=== PATIENT | male | born 1970 | race African-American/Black ===

== ENCOUNTER 2023-07-30 14:45 | Inpatient (IN) ==
[2023-07-30] MEDS ORDERED: SODIUM CHLORIDE 0.9% 250 ML IV PRN ×2 (15:22→16:51)
--- NOTE | 2023-07-30 15:36 | Emergency Department Note ---
Impression & Plan Weakness, Anemia, Dizziness, Thrombocytopenia ED Provider Note NAME: HINA [id number] YONI AGE: 53 SEX: M : 1970 ARRIVES VIA: Walk-In INFORMANT: [Patient] ED PROVIDER(S): [Darren Loya MD] CHIEF COMPLAINT: Anemia HISTORY OF PRESENT ILLNESS: The patient is a 53-year-old male who states he has a past diagnosis of anemia. He states that he at one point had bone marrow tested and he was told that he just was not making enough red cells. He was told he did not have cancer. Patient is currently at the local state detention and his hemoglobin returned quite low with some recent testing at 6.1. He also had a low platelet count of 115. The patient complains of increasing fatigue and weakness. He feels as if he has no energy. He is lightheaded to stand. He was sent today for a packed red blood cell transfusion, the patient is in favor of being transfused. The patient denies any black stool, stool was brown. Occasionally, when he wipes, he notices blood. There has been no vomiting, no abdominal pain. No fever. Of note, the patient cannot recall ever receiving a blood transfusion PMHx/PSHx/Social Hx: See Below PHYSICAL EXAM: GENERAL: Patient is in no acute distress. HEENT: No acute trauma, normocephalic atraumatic, mucous membranes moist, no nasal congestion. NECK: No stridor, no adenopathy, no meningismus, trachea is midline. LUNGS: Clear to auscultation bilaterally, no wheeze, no rhonchi, breath sounds equal. HEART: Subtle systolic murmur, regular rate and rhythm. ABDOMEN: Soft, nontender, no peritonitis. EXTREMITIES: No cyanosis, full range of motion of all the joints without pain or difficulty. NEUROLOGIC: Oriented x 3, no acute motor or sensory deficits, no focal weakness. SKIN: No jaundice, no diaphoresis. DIFFERENTIAL DIAGNOSIS: Myelodysplastic syndrome, GI bleeding, electrolyte imbalance, malignancy, tickborne illness, among others. EMERGENCY DEPARTMENT PROCEDURES: MEDICAL DECISION MAKING: There is no leukocytosis. The patient is quite anemic with a hemoglobin of 6. Platelet count is low at 128. No renal failure or significant electrolyte abnormality. No concerning liver enzyme elevation. ECG shows a sinus bradycardia, no obvious acute ischemia. Cardiac enzyme testing x 1 is not consistent with acute cardiac injury. Patient appeared to be in a euthyroid state. Urinalysis does not show findings of infection. No hematuria. Anaplasmosis and Babesia smears were negative. Send out testing for anaplasmosis and Babesia is pending. Lyme disease testing was negative. COVID test was negative. Chest x-ray did not show pneumonia or CHF. On exam, the patient was not toxic, he was not hypotensive. The patient appears to be having issues with anemia. This has been an ongoing problem for him but today's hemoglobin was quite a bit lower than his baseline. He has been having symptoms of fatigue, weakness and dizziness. The patient did consent to a blood transfusion. He was ordered for 1 unit to be transfused while here in the ED. The appropriate paperwork was completed and signed. I did give the patient a dose of oral Tylenol as he was starting to develop a slight fever during the blood transfusion. He did he did well with this medication. I spoke with the patient and the guards. The on-call hospitalist was consulted. I spoke with case management. In short, the patient may require more than 1 unit of blood. Testing for the reason for his anemia is necessary. He does not describe GI bleeding but certainly, the stool will need testing while he is hospitalized. Prior/Outside records/notes reviewed: State detention documentation over the last few days. ECG per my interpretation: Indication was weakness. The ECG shows a sinus bradycardia with a first-degree AV block and sinus arrhythmia. The rate is 55. There is no ST elevation, no PVCs, the QTc is 386. Continuous Cardiac Monitoring per my interpretation: An order was placed for continuous cardiac monitoring. The monitor shows a rate of [] with []. Imaging/x-ray results per my interpretation: Chest x-ray did not show mediastinal widening, pneumonia or pneumothorax Chronic Medical/Social conditions affecting care: Currently incarcerated at the local state detention Care/Management discussed with: Case management and the on-call hospitalist. Level of care consideration(s): After review of the information above and other included data: --I believe the patient requires escalation of care to admission Critical Care Note: I have personally spent 39 minutes of critical care time in the direct management of this patient. This includes bedside care, interpretation of diagnostic studies, and testing, discussion with consultants, patient, and family members, and other required patient management activities. This 39 minutes is in excess of all separately billable procedures. DISPOSITION: Admission Past Med/Surg History Medical History Anemia Social History Smoking Status: Unknown if ever smoked Preferred Language: Estonian Feels Safe at Home: Yes Allergies Allergies Allergy/AdvReac Type Severity Reaction Status Date / Time No Known Allergies Allergy Unverified 07/30/23 15:40 Home Meds Home Medications Medication Instructions Recorded Confirmed acetaminophen 500 mg tablet 1,000 mg PO TID PRN Pain 07/30/23 07/30/23 cholecalciferol (vitamin D3) 10 10 mcg PO DAILY 07/30/23 07/30/23 mcg (400 unit) tablet (Vitamin D3) cyanocobalamin (vitamin B-12) 1,000 mcg IM .Q 2 WKS ON Wednesday07/30/23 07/30/23 1,000 mcg/mL injection solution epoetin anabel 10,000 unit/mL 10,000 unit subcut WK 07/30/23 07/30/23 injection solution (Epogen) folic acid 1 mg tablet 1 mg PO DAILY 07/30/23 07/30/23 mirtazapine 45 mg tablet 45 mg PO HS 07/30/23 07/30/23 omeprazole 20 mg capsule,delayed 20 mg PO DAILY 07/30/23 07/30/23 release prazosin 1 mg capsule 3 mg PO HS 07/30/23 07/30/23 pyridoxine (vitamin B6) 100 mg 100 mg PO BID 07/30/23 07/30/23 tablet (Vitamin B-6) sertraline 100 mg tablet 100 mg PO DAILY 07/30/23 07/30/23 sertraline 50 mg tablet 50 mg PO DAILY 07/30/23 07/30/23 Results & Data (ED) Vital Signs Vital Signs - 24 hr 07/30/23 15:06 07/30/23 16:04 07/30/23 16:53 Temperature 36.5 C 36.8 C Temperature Source Temporal Artery Scan Oral Pulse Rate 57 L Pulse Rate [Apical] 50 L Pulse Rhythm Pulse Rhythm [Apical] Regular Pulse Strength Pulse Strength [Apical] Normal Respiratory Rate 20 18 Respiratory Effort / Characteristics Non-Labored Spontaneous Non-Labored Spontaneous Respiratory Depth Normal Normal Respiratory Pattern Regular Blood Pressure 130/80 Blood Pressure Mean 96 Pulse Oximetry 100 97 100 Oxygen Delivery Method Room Air Room Air Nasal Cannula Oxygen Flow Rate Sepsis Recent Fever Within 48 Hours No Sepsis New/Unexplained Change in Mental Status N/A Sepsis Action Taken by Nursing No Action Required 07/30/23 17:17 07/30/23 17:51 07/30/23 18:09 Temperature 37.2 C 37.8 C H Temperature Source Oral Oral Pulse Rate 52 L 51 L 56 L Pulse Rate [Apical] Pulse Rhythm Regular Regular Pulse Rhythm [Apical] Pulse Strength Normal Normal Pulse Strength [Apical] Respiratory Rate 15 18 Respiratory Effort / Characteristics Respiratory Depth Respiratory Pattern Blood Pressure 161/89 H 156/81 H Blood Pressure Mean 113 106 Pulse Oximetry 100 14 L Oxygen Delivery Method Oxygen Flow Rate 2 2 Sepsis Recent Fever Within 48 Hours Sepsis New/Unexplained Change in Mental Status Sepsis Action Taken by Nursing 07/30/23 18:27 07/30/23 18:37 07/30/23 18:49 Temperature 37.5 C 37.5 C Temperature Source Oral Oral Pulse Rate 52 L 53 L Pulse Rate [Apical] Pulse Rhythm Regular Regular Pulse Rhythm [Apical] Pulse Strength Normal Normal Pulse Strength [Apical] Respiratory Rate 18 17 Respiratory Effort / Characteristics Respiratory Depth Respiratory Pattern Blood Pressure 156/96 H 160/87 H Blood Pressure Mean 116 111 Pulse Oximetry 100 100 100 Oxygen Delivery Method Nasal Cannula Oxygen Flow Rate 2 Sepsis Recent Fever Within 48 Hours Sepsis New/Unexplained Change in Mental Status Sepsis Action Taken by Nursing 07/30/23 19:21 07/30/23 19:44 07/30/23 19:57 Temperature 37.2 C 37 C 37.2 C Temperature Source Oral Oral Oral Pulse Rate 50 L 51 L 52 L Pulse Rate [Apical] Pulse Rhythm Regular Regular Regular Pulse Rhythm [Apical] Pulse Strength Normal Normal Normal Pulse Strength [Apical] Respiratory Rate 17 17 18 Respiratory Effort / Characteristics Respiratory Depth Respiratory Pattern Blood Pressure 151/85 H 151/81 H 150/60 H Blood Pressure Mean 107 104 90 Pulse Oximetry 97 98 100 Oxygen Delivery Method Oxygen Flow Rate Sepsis Recent Fever Within 48 Hours Sepsis New/Unexplained Change in Mental Status Sepsis Action Taken by Jail Medications Current Medication List: was personally reviewed by me Laboratory Data Attestation: I reviewed the patient's lab results. 07/30/23 15:40 07/30/23 15:40 Lab Results 07/30/23 07/30/23 07/30/23 Range/Units 15:40 15:44 16:59 WBC 6.02 (4.8-10.8) K/ul RBC 1.71 L (4.70-6.10) M/uL Hgb 6.0 L* (14.0-18.0) g/dl Hct 19.0 L* (42.0-52.0) % MCV 111.1 H (80.0-100.0) fL MCH 35.1 H (25.0-34.0) pg MCHC 31.6 L (32.0-36.0) g/dL RDW Std Deviation 78.5 H (36.4-46.3) fL RDW Coeff of Chang 21.2 H (11.5-14.5) % Plt Count 128 L (130-400) K/uL MPV 13.6 H (9.4-12.4) fL Immature Gran % (Auto) 7.3 % Neut % (Auto) 38.4 % Lymph % (Auto) 43.2 % [place] % (Auto) 10.6 % Eos % (Auto) 0.2 % Baso % (Auto) 0.3 % Neut # (Auto) 2.31 (1.40-6.50) K/uL Lymph # (Auto) 2.60 (1.20-3.40) K/uL [place] # (Auto) 0.64 H (0.11-0.59) K/uL Eos # (Auto) 0.01 (0.00-0.50) K/uL Baso # (Auto) 0.02 (0.00-0.20) K/uL Immature Gran # (Auto) 0.44 H (0.01-0.20) K/uL Absolute Nucleated RBC 0.68 H (0.00-0.12) K/uL Nucleated RBC % (auto) 11.3 % Polychromasia 2+ Poikilocytosis Present Anisocytosis Present Tear Drop Cells 1+ Ovalocytes 2+ Acanthocytes (Spur) 1+ Sodium 138 (136-145) mmol/L Potassium 4.7 (3.5-5.1) mmol/L Chloride 108 H (98-107) mmol/L Carbon Dioxide 25 (21-32) mmol/L Anion Gap 5 (3-11) BUN 14 (6-23) mg/dl Creatinine 0.79 (0.6-1.4) mg/dl Est Cr Clr Drug Dosing 127.2 ml/min Est GFR ( Amer) 119.7 ml/min Est GFR (Non-Af Amer) 103.2 ml/min BUN/Creatinine Ratio 17.7 (10-20) Glucose 104 H (70-99(Fasting)) mg/dl Uric Acid 7.0 (2.6-7.2) mg/dl Calcium 8.6 (8.6-10.3) mg/dl Magnesium 1.8 (1.7-2.4) mg/dl Iron 269 H (35-175) mcg/dl TIBC TNP Unsaturated IBC < 55 L (155-355) mcg/dl Transferrin % Sat TNP Total Bilirubin 1.0 (0.2-1.0) mg/dl AST 31 (13-39) U/L ALT 25 (7-52) U/L Alkaline Phosphatase 78 (34-104) U/L Lactate Dehydrogenase 386 H (86-244) U/L Troponin I High Sens 4.5 (0-20) pg/ml Total Protein 6.8 (6.0-8.3) gm/dl Albumin 3.9 (3.4-5.0) gm/dl Globulin 2.9 (2.5-4.0) gm/dl Albumin/Globulin Ratio 1.3 (0.9-2) Vitamin B12 789 (180-914) pg/ml Folate 14.43 (>5.38) ng/ml TSH 1.010 (0.300-4.500) uIu/ml Urine Color Yellow Urine Appearance Clear (Clear) Urine pH 5.5 (4.5-7.5) Ur Specific [place] 1.015 (1.000-1.030) Urine Protein Negative (Negative) Urine Glucose (UA) Negative (Negative) Urine Ketones Negative (Negative) Urine Blood Negative (Negative) Urine Nitrite Negative (Negative) Urine Bilirubin Negative (Negative) Urine Urobilinogen Negative (Negative) Ur Leukocyte Esterase Negative (Negative) Anaplasma Smear See Comment Babesia Smear See Comment Lyme Disease IgG Ab Negative (Negative) Lyme Disease IgM Ab Negative (Negative) SARS-CoV-2, RNA, NAAT (NEGATIVE) Blood Type B Positive Blood Type Recheck B Positive Antibody Screen NEGATIVE Crossmatch See Detail 07/30/23 Range/Units Unknown WBC (4.8-10.8) K/ul RBC (4.70-6.10) M/uL Hgb (14.0-18.0) g/dl Hct (42.0-52.0) % MCV (80.0-100.0) fL MCH (25.0-34.0) pg MCHC (32.0-36.0) g/dL RDW Std Deviation (36.4-46.3) fL RDW Coeff of Chang (11.5-14.5) % Plt Count (130-400) K/uL MPV (9.4-12.4) fL Immature Gran % (Auto) % Neut % (Auto) % Lymph % (Auto) % [place] % (Auto) % Eos % (Auto) % Baso % (Auto) % Neut # (Auto) (1.40-6.50) K/uL Lymph # (Auto) (1.20-3.40) K/uL [place] # (Auto) (0.11-0.59) K/uL Eos # (Auto) (0.00-0.50) K/uL Baso # (Auto) (0.00-0.20) K/uL Immature Gran # (Auto) (0.01-0.20) K/uL Absolute Nucleated RBC (0.00-0.12) K/uL Nucleated RBC % (auto) % Polychromasia Poikilocytosis Anisocytosis Tear Drop Cells Ovalocytes Acanthocytes (Spur) Sodium (136-145) mmol/L Potassium (3.5-5.1) mmol/L Chloride (98-107) mmol/L Carbon Dioxide (21-32) mmol/L Anion Gap (3-11) BUN (6-23) mg/dl Creatinine (0.6-1.4) mg/dl Est Cr Clr Drug Dosing ml/min Est GFR ( Amer) ml/min Est GFR (Non-Af Amer) ml/min BUN/Creatinine Ratio (10-20) Glucose (70-99(Fasting)) mg/dl Uric Acid (2.6-7.2) mg/dl Calcium (8.6-10.3) mg/dl Magnesium (1.7-2.4) mg/dl Iron (35-175) mcg/dl TIBC Unsaturated IBC (155-355) mcg/dl Transferrin % Sat Total Bilirubin (0.2-1.0) mg/dl AST (13-39) U/L ALT (7-52) U/L Alkaline Phosphatase (34-104) U/L Lactate Dehydrogenase (86-244) U/L Troponin I High Sens (0-20) pg/ml Total Protein (6.0-8.3) gm/dl Albumin (3.4-5.0) gm/dl Globulin (2.5-4.0) gm/dl Albumin/Globulin Ratio (0.9-2) Vitamin B12 (180-914) pg/ml Folate (>5.38) ng/ml TSH (0.300-4.500) uIu/ml Urine Color Urine Appearance (Clear) Urine pH (4.5-7.5) Ur Specific [place] (1.000-1.030) Urine Protein (Negative) Urine Glucose (UA) (Negative) Urine Ketones (Negative) Urine Blood (Negative) Urine Nitrite (Negative) Urine Bilirubin (Negative) Urine Urobilinogen (Negative) Ur Leukocyte Esterase (Negative) Anaplasma Smear Babesia Smear Lyme Disease IgG Ab (Negative) Lyme Disease IgM Ab (Negative) SARS-CoV-2, RNA, NAAT NEGATIVE (NEGATIVE) Blood Type Blood Type Recheck Antibody Screen Crossmatch Administered Medications Discontinued Medications Acetaminophen (Acetaminophen 500 Mg Tab) 1,000 mg PO NOW STA Stop: 07/30/23 18:29 Last Admin: 07/30/23 18:30 Dose: 1,000 mg Documented By: [facility] Imaging Data Radiologist's Impression: Chest X-Ray 07/30/23 15:22 SINGLE VIEW CHEST CLINICAL HISTORY: Generalized weakness. FINDINGS: An AP, portable, upright chest radiograph is obtained. No prior studies are available for comparison at the time of dictation. The cardiomediastinal silhouette appears enlarged. The pulmonary vasculature is noncongested. The lungs and pleural spaces are clear. No pneumothorax is seen. The bony thorax is grossly intact. IMPRESSION: 1. The cardiac silhouette appears enlarged. 2. The lung are clear. ACT 112: Negative or not required by law. Electronically signed by: Darren Ramirez M.D. 07/30/2023 5:05 PM Discharge Plan Visit Data Chief Complaint: Illness Stated Complaint: PORT TRANSFUSION ED Provider: Darren Loya Discharge Problem: Weakness, Anemia, Dizziness, Thrombocytopenia Patient Disposition: Admitted As Inpatient Condition: Fair Discharge Instructions Interventions: ED Discharge Assessment Last Done: 07/30/23 20:36 Prescriptions Prescriptions: No Action sertraline 100 mg Tablet 100 mg PO DAILY cholecalciferol (vitamin D3) [Vitamin D3] 10 mcg (400 unit) Tablet 10 mcg PO DAILY omeprazole 20 mg Capsule,Delayed Release(Dr/Ec) 20 mg PO DAILY folic acid 1 mg Tablet 1 mg PO DAILY sertraline 50 mg Tablet 50 mg PO DAILY prazosin 1 mg Capsule 3 mg PO HS mirtazapine 45 mg Tablet 45 mg PO HS acetaminophen 500 mg Tablet 1,000 mg PO TID PRN (Reason: Pain) cyanocobalamin (vitamin B-12) [Vitamin B-12] 1,000 mcg/mL Solution 1,000 mcg IM .Q 2 WKS ON WEDNESDAY pyridoxine (vitamin B6) [Vitamin B-6] 100 mg Tablet 100 mg PO BID Epogen 10,000 unit/mL Solution 10,000 unit subcut WK Discharge Problem: Anemia Qualifiers: Anemia type: unspecified type Qualified Code(s): D64.9 - Anemia, unspecified
[2023-07-30 16:34] LABS: Albumin Level 3.9 gm/dl (3.4-5.0); Anion Gap 5 (3-11); Calcium 8.6 mg/dl (8.6-10.3); Carbon Dioxide 25 mmol/L (21-32); Chloride 108 mmol/L (98-107); Magnesium 1.8 mg/dl (1.7-2.4); Potassium 4.7 mmol/L (3.5-5.1); Sodium 138 mmol/L (136-145)
[2023-07-30 16:40] LABS: Alanine Aminotransferase 25 U/L (7-52); Albumin Globulin Ratio 1.3 (0.9-2); Alkaline Phosphatase 78 U/L (34-104); Aspartate Aminotransferase 31 U/L (13-39); BUN Creatinine Ratio 17.7 (10-20); Blood Urea Nitrogen 14 mg/dl (6-23); Creatinine Clr Calc Pharmacy 127.2 ml/min; Est GFR (African American) 119.7 ml/min; Est GFR (Non-African American) 103.2 ml/min; Globulin 2.9 gm/dl (2.5-4.0); Glucose 104 mg/dl (70-99(Fasting)); Total Protein 6.8 gm/dl (6.0-8.3)
[2023-07-30 16:41] LABS: Mean Corpuscular Hemoglobin 35.1 pg (25.0-34.0); Mean Corpuscular Hgb Conc 31.6 g/dL (32.0-36.0); Mean Corpuscular Volume 111.1 fL (80.0-100.0); Mean Platelet Volume 13.6 fL (9.4-12.4); Nucleated RBC # (auto) 0.68 K/uL (0.00-0.12); Nucleated RBC % (auto) 11.3 %; Platelet Count 128 K/uL (130-400); RDW Coefficient of Variation 21.2 % (11.5-14.5); RDW Standard Deviation 78.5 fL (36.4-46.3); Red Blood Count 1.71 M/uL (4.70-6.10); White Blood Count 6.02 K/ul (4.8-10.8)
[2023-07-30 17:01] LABS: Troponin I High Sensitivity 4.5 pg/ml (0-20)
[2023-07-30 17:02] LABS: Lyme Ab IgG w/WB Rflx Negative (Negative); Lyme Ab IgM w/WB Rflx Negative (Negative)
--- NOTE | 2023-07-30 17:06 | XRay Report ---
SINGLE VIEW CHEST CLINICAL HISTORY: Generalized weakness. FINDINGS: An AP, portable, upright chest radiograph is obtained. No prior studies are available for c omparison at the time of dictation. The cardiomediastinal silhouette appears enlarged. The pulmonary vasculature is noncongested. The lungs and pleural spaces are clear. No pneumothorax is seen. The bon y thorax is grossly intact. IMPRESSION: 1. The cardiac silhouette appears enlarged. 2. The lung are clear. ACT 112: Negative or not required by law. Electronically signed by: Darren Ramirez M.D. 07/30/2023 5:05 PM
[2023-07-30 17:36] LABS: Acanthocytes 1+; Anisocytosis Present; Ovalocytes 2+; Poikilocytosis Present; Polychromasia 2+; Tear Drop Cells 1+
[2023-07-30] MEDS ORDERED: ONDANSETRON INJ 2 MG/ML 2 ML VIAL IV PRN (17:55)
[2023-07-30] MEDS ORDERED: MAGNESIUM HYDROXIDE SUSP 30 ML UDC PO PRN (17:55)
[2023-07-30] MEDS ORDERED: ALUMINUM/MAGNESIUM SUSP 30 ML UDC PO PRN (17:55)
--- NOTE | 2023-07-30 18:15 | History & Physical Report ---
Date of Service July 30, 2023 Assessment & Plan (1) Anemia: Plan Easy fatigability Anemia Patient came in with worsening easy fatigability that has been ongoing for 8 months per patient. Patient reports he has been bone marrow tested and was told he was not making enough red cells. Patient also reports history of reflux disease and blood in his wipe but no black stool. Admitting hemoglobin of 6.0, has been ordered blood transfusion per ER. Follow-up hemoglobin 10 PM and in the morning. Get iron panel/B12 level/folate level/LDH/haptoglobin. FOBT, clear liquid diet until FOBT results back, IV PPI until FOBT results back. Patient has been started on folate/vitamin B12/reports and recently. Will continue. Hematology consult, await further recommendation GI consult pending FOBT results. Transfuse blood for symptomatic anemia or hemoglobin less than 7. Retrieve outpatient medical records regarding bone marrow test and hematology eval. Other chronic medical conditions: PTSD/depression/reflux disease --continue with/resume home meds as and when able. DVT prophylaxis: SCDs for now, possibility of GI bleed Full code History of Present Illness Chief Complaint: Easy fatigability Primary Care Provider: ANDREINA Osman 53-year-old male with PMH of PTSD, depression, reflux disease, and anemia [and no history of blood clot or cancer or stroke or CA per patient] presented to the ED with complaint of lightheadedness/dizziness with activity, lack of energy, sleepiness, shortness of breath with activity, easy fatigability ongoing for 8 months which has been worsening lately. He was tested for blood level, hemoglobin returned low at 6.1 as an outpatient. Patient denies any flulike illness or sore throat or cough or chest pain or palpitation. Patient reports overall decrease in his activity level. Reports eating okay, has not noticed black stool but has sometimes noticed blood in the wipe. Patient denies use of blood thinner or NSAIDs. Patient does have history of reflux disease. He takes Prilosec as an outpatient. Medications discussed with the patient at bedside. Plan of care discussed with the patient at bedside, he voiced understanding. Full code Allergies Allergy/AdvReac Type Severity Reaction Status Date / Time No Known Allergies Allergy Unverified 07/30/23 15:40 Home Medications Medication Instructions Recorded Confirmed Type acetaminophen 500 mg tablet 1,000 mg PO TID PRN Pain 07/30/23 07/30/23 History cholecalciferol (vitamin D3) 10 10 mcg PO DAILY 07/30/23 07/30/23 History mcg (400 unit) tablet (Vitamin D3) cyanocobalamin (vitamin B-12) 1,000 mcg IM .Q 2 WKS ON Wednesday07/30/23 07/30/23 History 1,000 mcg/mL injection solution epoetin anabel 10,000 unit/mL 10,000 unit subcut WK 07/30/23 07/30/23 History injection solution (Epogen) folic acid 1 mg tablet 1 mg PO DAILY 07/30/23 07/30/23 History mirtazapine 45 mg tablet 45 mg PO HS 07/30/23 07/30/23 History omeprazole 20 mg capsule,delayed 20 mg PO DAILY 07/30/23 07/30/23 History release prazosin 1 mg capsule 3 mg PO HS 07/30/23 07/30/23 History pyridoxine (vitamin B6) 100 mg 100 mg PO BID 07/30/23 07/30/23 History tablet (Vitamin B-6) sertraline 100 mg tablet 100 mg PO DAILY 07/30/23 07/30/23 History sertraline 50 mg tablet 50 mg PO DAILY 07/30/23 07/30/23 History Past Med/Surg History Social History Smoking Status: Unknown if ever smoked Preferred Language: Bulgarian Feels Safe at Home: Yes Review of Systems Review of Systems: Negative otherwise mentioned in HPI. Physical Exam Physical Exam: GENERAL: Alert and oriented x3. NAD, on 2L O2 via NC. HEENT: No pallor, no icterus. Pupils equal, round and reactive to light. Oral mucosa moist. NECK: No JVD, no neck masses. HEART: S1 and S2 heard. Regular rate and rhythm. No murmur, no gallop. RESPIRATORY SYSTEM: Normal AP diameter. No accessory muscle use. No wheezing, no crackles. ABDOMEN: Soft, bowel sounds present, nontender, no distention. CENTRAL NERVOUS SYSTEM: No facial droop. Speech is clear. Obeys simple commands. Moves extremities. EXTREMITIES: No edema, no erythema seen. Results & Data Results & Data Vital Signs (Past 12 Hours) Vital Signs Temp Pulse Pulse Resp BP Pulse Ox O2 Del Method 07/30/23 17:51 37.2 C 51 L 15 161/89 H 100 07/30/23 17:17 52 L 07/30/23 16:53 36.8 C 50 L 18 100 Nasal Cannula 07/30/23 16:04 97 Room Air 07/30/23 15:06 36.5 C 57 L 20 130/80 100 Room Air O2 Flow Rate 07/30/23 17:51 2 07/30/23 17:17 07/30/23 16:53 07/30/23 16:04 07/30/23 15:06
[2023-07-30] MEDS ORDERED: ACETAMINOPHEN 500 MG TAB PO STA (18:28)
[2023-07-30 18:36] LABS: Iron 269 mcg/dl (35-175); Lactate Dehydrogenase 386 U/L (86-244); Unsaturated Iron Binding Cap < 55 mcg/dl (155-355)
[2023-07-30 18:51] LABS: Folate (Folic Acid),Ser orPlas 14.43 ng/ml (>5.38)
[2023-07-30 18:52] LABS: Appearance Urine Clear (Clear); Bilirubin Urine Negative (Negative); Blood Urine Negative (Negative); Color Urine Yellow; Glucose Urine UA Negative (Negative); Ketones Urine Negative (Negative); Leukocyte Esterase Urine Negative (Negative); Nitrite Urine Negative (Negative); Protein Urine Negative (Negative); Specific Gravity Urine 1.015 (1.000-1.030); Urobilinogen Urine Negative (Negative); pH Urine 5.5 (4.5-7.5)
[2023-07-30] MEDS ORDERED: PRAZOSIN HCL 1 MG CAP PO SCH (21:00)
[2023-07-30] MEDS: MIRTAZAPINE SOLTAB 15 MG PO SCH (22:06)
[2023-07-30] MEDS: PYRIDOXINE HCL 50 MG TAB PO SCH (22:09)
[2023-07-30] MEDS ORDERED: ATROPINE SULFATE 0.1 MG/ML 10ML SYR IV PRN (22:22)
[2023-07-30] MEDS ORDERED: MAGNESIUM SULFATE / D5W 1 GM/100 ML BAG IV ONE (22:23)
[2023-07-31] MEDS: PANTOprazole 40 MG in SYRINGE 0 ML IV SCH ×2 (00:10→08:17)
--- NOTE | 2023-07-31 00:45 | Communication Note ---
Date of Service: July 31, 2023 Persistent bradycardia on the floor as per RN, heart rate 30s to 50s. Episodic sinus pauses noted as well. Patient asymptomatic as per RN. AP Bradycardia with sinus pauses Patient currently asymptomatic. Atropine as needed symptomatic bradycardia Cardiology consult Re: Bradycardia with episodic sinus pauses. Hold prazosin until patient seen by cardiology given potential bradycardia side effects as per formulary.
[2023-07-31 02:19] LABS: BUN Creatinine Ratio 11.8 (10-20); Calcium 8.6 mg/dl (8.6-10.3); Creatinine Clr Calc Pharmacy 117.9 ml/min; Est GFR (African American) 116.1 ml/min; Est GFR (Non-African American) 100.2 ml/min; Magnesium 2.1 mg/dl (1.7-2.4); Phosphorus 3.6 mg/dl (2.5-4.9); Potassium 3.7 mmol/L (3.5-5.1)
[2023-07-31 02:40] LABS: Hematocrit (blood only) 22.5 % (42.0-52.0); Hemoglobin 7.5 g/dl (14.0-18.0); Mean Corpuscular Hemoglobin 33.9 pg (25.0-34.0); Mean Corpuscular Hgb Conc 33.3 g/dL (32.0-36.0); Mean Corpuscular Volume 101.8 fL (80.0-100.0); Mean Platelet Volume 11.6 fL (9.4-12.4); Nucleated RBC # (auto) 0.55 K/uL (0.00-0.12); Nucleated RBC % (auto) 11.8 %; Platelet Count 113 K/uL (130-400); RDW Standard Deviation 79.6 fL (36.4-46.3); Red Blood Count 2.21 M/uL (4.70-6.10); White Blood Count 4.68 K/ul (4.8-10.8)
--- OUTSIDE RECORDS SUMMARY | 2023-07-31 06:07 | External Medical Summary ---
Author Name Unknown Address Unknown Organization [facility] [address] [facility] [address] Laboratory Report Ordering Provider Test Date Status Danelle Lacyced 06/09/2023 10:59:00 Final Observation Date Value Abnormality Reference (Units ) Status Leukocytes [#/volume] in Blood by Automated count 06/09/2023 11:41:24 3.11 Below low normal 4.00-10.40 (K/UL) Final Erythrocytes [#/volume] in Blood by Automated count 06/09/2023 11:41:24 1.97 Below low normal 4.40-5.60 (M/UL) Final Hemoglobin [Mass/volume] in Blood 06/09/2023 11:41:24 6.8 Below low normal 13.0-17.0 (G/DL) Final Hematocrit [Volume Fraction] of Blood by Automated count 06/09/2023 11:41:24 21.1 Below low normal 35.0-44.0 (%) Final MCV [Entitic volume] by Automated count 06/09/2023 11:41:24 107.1 Above high normal 81.0-96.0 (fL) Final MCH [Entitic mass] by Automated count 06/09/2023 11:41:24 34.5 Above high normal 28.0-33.0 (pg) Final MCHC [Mass/volume] by Automated count 06/09/2023 11:41:24 32.2 32.0-36.0 (G/DL) Final Erythrocyte distribution width [Ratio] by Automated count 06/09/2023 11:41:24 21.7 Above high normal 11.5-14.2 (%) Final Platelets [#/volume] in Blood by Automated count 06/09/2023 11:41:24 120 Below low normal 150-350 (K/UL) Final Erythrocyte distribution width [Entitic volume] by Automated count 06/09/2023 11:41:24 80 Final Platelet mean volume [Entitic volume] in Blood by Automated count 06/09/2023 11:41:24 11.1 9.0-12.2 (fL) Final Nucleated erythrocytes/100 cells in Bone marrow by Manual count 06/09/2023 11:41:24 6 (/100 WBCS) Final Nucleated erythrocytes [#/volume] in Blood by Automated count 06/09/2023 11:41:24 0.18 (K/UL) Final Performing Location [facility] [address] [address]
--- OUTSIDE RECORDS SUMMARY | 2023-07-31 06:07 | External Medical Summary | Continuity of Care Document ---
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 maturing trilineage hematopoiesis (see comment). - No increase in blasts. - Myelofibrosis, mild (MF-1). - Decreased storage iron. Comment: Marrow hypercellularity and morphologic atypia in association with pancytopenia is concerning for myelodysplasia, however non-clonal causes for morphologic atypia should be excluded such as drug and toxin exposure, growth factor therapy, viral infections, immunologic/autoimmune disorders, vitamin de ficiencies, and essential element imbalance, such as copper deficiency or excess of zinc. Correlation with cytogenetic and molecular studies is recommended to rule out or confirm myelodysplastic syndrome. Jonathan Thacker MD (Electronically signed by) Verified: 06/11/2023 17:29 EDT Performing Location: [facility] * Imani Velazquez D: TRANSCRIBE MD Kirstie, Jonathan: PERFORM, VERIFY MD Kirstie, Jonathan: VERIFY Event Display: BM Disclaimer Authored Date: [id number] The following statement applies to flow cytometry, immunohistochemical, histochemical, molecular genetics, immunofluorescence, and in situ hybridization assays. These tests were developed and their performance characteristics determined by a [facility] Department of Pathology Laboratory. All controls show appropriate reactivity. Not all tests have been cleared or approved by the U.S. Food and Drug Administration. The FDA has determined that such clearance or approval is not necessary. For decalcified specimen types, focused validation may have been done that may or may not apply to all decalcified specimen types. Results should be interpreted with caution. Patient Care team information Care Team Personnel Name: MD Jenniffer, Cabrera Murray Position: Physician - Orthopaedic Surg Member Role: Lifetime Relationship Address: Address: [address] [place] [address] [address] [place] [address] Name: Birdie Hathaway Position: HIS Supervisor_P Member Role: HIS Lifetime Care Team Related Persons Name: MARTIR LARSON Address: home [address] [place] [id number]
--- OUTSIDE RECORDS SUMMARY | 2023-07-31 06:07 | External Medical Summary ---
Author Name Unknown Address Unknown Organization [facility] [address] [facility] [address] Laboratory Report Ordering Provider Test Date Status Ursula Lacy 06/09/2023 10:59:00 Final Observation Date Value Abnormality Reference (Units ) Status Neut% 06/09/2023 11:41:24 36.7 (%) Final Lymphocytes/100 leukocytes in Blood by Automated count 06/09/2023 11:41:24 59.5 (%) Final Monocytes/100 leukocytes in Blood by Automated count 06/09/2023 11:41:24 2.9 (%) Final Eosinophils/100 leukocytes in Blood by Automated count 06/09/2023 11:41:24 0.3 (%) Final Basophils/100 leukocytes in Blood by Automated count 06/09/2023 11:41:24 0.3 (%) Final Immature granulocytes/100 leukocytes in Blood by Automated count 06/09/2023 11:41:24 0.3 (%) Final Neutrophils [#/volume] in Blood by Automated count 06/09/2023 11:41:24 1.14 Below low normal 2.00-7.70 (K/UL) Final Lymphocytes [#/volume] in Blood by Automated count 06/09/2023 11:41:24 1.85 1.00-3.40 (K/UL) Final Monocytes [#/volume] in Blood 06/09/2023 11:41:24 0.09 0.00-1.00 (K/UL) Final Eosinophils [#/volume] in Blood by Automated count 06/09/2023 11:41:24 0.01 0.00-0.50 (K/UL) Final Basophils [#/volume] in Blood by Automated count 06/09/2023 11:41:24 0.01 0.00-0.10 (K/UL) Final Immature granulocytes [Presence] in Blood by Automated count 06/09/2023 11:41:24 0.01 0.00-0.40 (K/UL) Final Performing Location [facility] [address] [place] [address]
--- OUTSIDE RECORDS SUMMARY | 2023-07-31 06:08 | External Medical Summary | Continuity of Care Document ---
Author Name Unknown Organization [facility] Address [address] [place] [id number] Care Team Providers Care Police Chief Deputy Name Role Phone Curt Hardwick Primary Care Physician [phone] [id number] Date(s): 05/06/23 - 05/06/23 [facility] [address] [place] [address], [id number] Discharge Disposition: Home or Self Care Attending Physician: MD Minor Theodoor A Referring Physician: MD Minor Theodoor A Allergies, Adverse Reactions, Alerts Substance Reaction Severity Status traZODone Active Functional Status 05/05/23 ADLs Minimal assistance Immunizations Given and Recorded Vaccine Date Status Refusal Reason influenza virus vaccine, inactivated 1 10/01/13 Gi nidhi 1Early/Late Reason: Other : awaiting discharge Problem List Condition Confirmation Course Effective Dates Status Health St atus Informant Fracture of femoral shaft, right, closed Confirmed Active Closed transverse and posterior wall fracture of right acetabulum Confirmed Active Numbness Confirmed Active Post concussive syndrome Confirmed Active Tobacco user Confirmed Active TBI (traumatic brain injury) Confirmed Active Traumatic dislocation of right hip Confirmed Active Weight monitoring Confirmed Active Procedures Procedure Date Related Diagnosis Body Site Status Stabbed and surgery for repair to abdomen 1999 Completed Arthroscopic procedure 1 Completed 1Lt knee Results Radiology Reports * Exam Date Time Procedure Performing Provider Status 05/06/23 9:21 AM US FNA Thyroid Gland Amberly Lubin Notes: (US FNA Thyroid Gland) Reason For Exam: US GUIDED THYROID BIOPSY/ NONTOXIC GOITER, UNSPECIFIED US FNA Thyroid Gland EXAMINATION: US FNA Thyroid Gland PROCEDURE: 1. Thyroid lesion fine-needle aspiration 2. Ultrasound guidance INDICATION: Dominant nodule within the right thyroid lobe. Request for biopsy. OPERATING PHYSICIAN: Dr. Donnie Gil REFRACTORY FURNACE DESIGNER: None CONSENT: After a detailed discussion of the procedure, risks, benefits and alternative treatment options, informed consent was obtained from the [patient]. TIME OUT: A preprocedural time-out was performed at 08 35 with the procedural staff and Dr. Lamb present. The patient's identification was verified. Informed consent with agreement of procedure, site and position was obtained. All necessary equipment was available prior to procedure. Allelements of maximal sterile barrier technique, including hand hygiene[,] and skin preparation[, and sterile ultrasound techniques] were followed. COMPLICATIONS: None ANESTHESIA: Lidocaine 1% 8 mL subcutaneously MEDICATIONS: Lidocaine 1% 8 mL subcutaneously PROCEDURE DESCRIPTION: The patient was placed in the supine position on the ultrasound procedure guryuma. The neck was examined with ultrasound, and [right thyroid nodule] was identified. Permanent ultrasound images were archived to the patient medical record. Satisfactory percutaneous access route into the right thyroid nodule was chosen. The skin of the mid neck was then prepped and draped in usual sterile fashion. Following administration of a small amount of lidocaine 1% into the skin and subcutaneous soft tissues of the neck, a 25 gauge needle was advanced through the skin and subcutaneous soft tissues and into the right thyroid nodule under direct ultrasound guidance. Permanent ultrasound images were archived to the patient medical record. Fine-needle aspiration biopsy specimen of the right thyroid nodule was obtained under direct ultrasound guidance. This process was repeated with4 additional and separate 25 gauge needles, and a total of 5 biopsy specimens were obtained. Slideswere created and were immediately reviewed by pathology and demonstrated adequate biopsy specimens.All specimens were provided to pathology. The needles were removed and hemostasis was obtained withdirect manual compression. Sterile dressing was applied. The patient tolerated the procedure well and there were no immediate procedural complications. The patient was transferred from the department stable condition. FINDINGS: Ultrasound images demonstrate dominant nodule within the right thyroid lobe corresponding with prior outside imaging. within the right lobe of the thyroid gland. Subsequent images demonstrate advancement of the biopsy needles into the right thyroid nodule. Completion images demonstrate no substantial perinodular fluid collection to suggest significant hemorrhage. IMPRESSION: Technically successful ultrasound-guided right thyroid nodule biopsy as described. Plan: The patient should follow-up with the referring clinical physician for results of the biopsy procedure. Workstation ID: [id number] Final Dictated by:MD Gil Shante D Dictated DT/TM:05/06/2023 12:32 Signed by:MD Gil Shante D Signed (Electronic Signature):05/06/2023 12:31 Social History Social History Type Response Smoking Status Current every day li ght smoker Sex Male Implantable Device List Procedure [...] Safety Implantable Status Assigning Authority Unknown Unknown [id number] Unknown 08/15/23 Unknown Unknown Active Un known Unknown Unknown [id number] Unknown 11/14/23 Unknown Unknown Active Unk nown Unknown Unknown [id number] Unknown 12/14/23 Unknown Unknown Active Unk nown Patient Care team information Care Team Personnel Name: MD Jenniffer, Cabrera Murray Position: Physician - Orthopaedic Surg Member Role: Lifetime Relationship Address: Address: [address] [place] [address] Name: Birdie Hathaway Position: HIS Supervisor_P Member Role: HIS Lifetime Name: MD Ronen, Curt Jones Position: Referring Member Role: Primary Care Provider Address: Address: [facility] Primary Care [address], [facility] [address] [place] [address]
[2023-07-31] MEDS: ACETAMINOPHEN 325 MG TAB PO PRN ×2 (06:51→11:24)
[2023-07-31 07:01] LABS: ALC (manual) 3.01 K/uL (1.2-3.4); ANC (manual) 2.17 K/uL (1.4-6.5); Blast # (manual) 0.48 K/uL (0-0); Blast Cells % (manual) 8 %; Eosinophils # (manual) 0.12 K/uL (0-0.50); Eosinophils % (manual) 2 %; Lymphocytes # (manual) 3.01 K/uL (1.2-3.4); Lymphocytes % (manual) 50 %; Monocytes # (manual) 0.06 K/uL (0.11-0.59); Monocytes % (manual) 1 %; Myelocytes # (manual) 0.12 K/uL (0-0); Myelocytes % (manual) 2 %; Neutrophils # (manual) 2.17 K/uL (1.40-6.50); Neutrophils % (manual) 36 %; Promyelocytes # (manual) 0.06 K/uL (0-0); Promyelocytes % (manual) 1 %
--- NOTE | 2023-07-31 07:35 | Hospitalist Progress Note ---
Date of Service July 31, 2023 Assessment & Plan (1) Pancytopenia: Plan: Pancytopenia with population of blasts and macrocytosis in a patient with prolonged symptomatology. B12, folic acid levels are in good range and TSH is normal. 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 On its face, the process suggests a disorder on the spectrum of myelodysplasia with excess blasts versus a smoldering acute leukemia. Peripheral smear review would be consistent with that focus. Marrow aspiration and biopsy will be pivotal in better distinguishing the exact diagnosis. Obtaining historical marrow biopsy results will set a better context but will not eliminate the need for an updated study. Additional components of the differential diagnosis could include drug effects. Sertraline and mirtazapine have very rare associations with hematopoietic toxicity but overall this seems unlikely. Especially as an incarcerated individual it is very unlikely he has major toxic exposures that could cause this. The prolonged symptomatology and lack of other more specific symptoms such as fever and prostration suggest against a major infectious cause The history of prolonged symptoms suggests that this is not a rapidly evolving process and indeed current platelet and ANC counts are stable and with good response to red cells it is not likely that he will have threatening anemia anytime soon. Whatever his disorder, he would likely benefit from initial evaluation and treatment planning through a quaternary center and I would strongly consider transfer to [place] or some other similar facility for additional diagnostics and specialty evaluation. Without immediate threat, however, if that is not easily accomplished in the near future we can certainly proceed with bone marrow aspiration and biopsy the first of the week here to set the initial stage. In the meantime, would use irradiated blood products given the potential that he may be considered for stem cell transplantation as part of his treatment. Would transfuse to keep his hemoglobin above 7 g/dL. Platelet transfusions would only be required if he falls below a level of 10,000 or show signs of significant hemostatic compromise. Plan Transfusion support as above, patient needs to move towards updated diagnostic marrow aspiration and biopsy even as we try to assemble his historical findings. Would consider transfer to a quaternary center if that is feasible but if not accomplished in the near future, can proceed with initial marrow biopsy here. Full consultation will be completed later today Admission and Anticipated Discharge Date Admission Date: July 30, 2023 Subjective This note represents a cursory/preliminary review and comment, full consult will follow Results & Data Results & Data Vital Signs (Past 12 Hours) Vital Signs Temp Pulse Pulse Resp BP BP Pulse Ox 07/31/23 03:10 36.8 C 48 L 20 156/73 H 100 07/31/23 00:21 36.8 C 51 L 16 140/68 97 07/30/23 23:17 36.9 C 57 L 16 140/75 97 07/30/23 22:19 37.2 C 49 L 18 153/76 H 99 07/30/23 21:55 07/30/23 21:49 37.1 C 45 L 16 155/79 H 100 07/30/23 21:34 37.1 C 48 L 16 150/65 H 100 07/30/23 21:18 37.3 C 50 L 20 143/81 H 100 07/30/23 21:12 49 L 07/30/23 19:57 37.2 C 52 L 18 150/60 H 100 07/30/23 19:44 37 C 51 L 17 151/81 H 98 O2 Del Method 07/31/23 03:10 Room Air 07/31/23 00:21 07/30/23 23:17 07/30/23 22:19 07/30/23 21:55 Room Air 07/30/23 21:49 07/30/23 21:34 07/30/23 21:18 07/30/23 21:12 07/30/23 19:57 07/30/23 19:44 PG Care Time/CCT Total # of Minutes Spent Total Time Spent with Patient: Total time spent is greater than 50% in coordination of care (as documented) at patient's floor/unit and/or counseling patient: Coding Level of Care Code None Diagnoses Pancytopenia D61.818
[2023-07-31 07:45] LABS: Reticulocyte % 4.7 % (0.5-2.0)
[2023-07-31] MEDS ORDERED: POTASSIUM CHLORIDE CRTAB 20 MEQ TABCR PO STA (07:48)
[2023-07-31] MEDS: CHOLECALCIFEROL 400 UNITS 10 MCG TAB PO SCH (08:17)
[2023-07-31] MEDS: SERTRALINE HCL 50 MG TABLET PO SCH (08:17)
[2023-07-31] MEDS: SERTRALINE HCL 100 MG TABLET PO SCH (08:17)
[2023-07-31] MEDS: PYRIDOXINE HCL 50 MG TAB PO SCH ×2 (08:17→20:21)
--- NOTE | 2023-07-31 08:17 | Electrocardiogram Report ---
Test Reason : Blood Pressure : / mmHG Vent. Rate : 055 BPM Atrial Rate : 055 BPM P-R Int : 240 ms QRS Dur : 100 ms QT Int : 404 ms P-R-T Axes : 050 012 006 degrees QTc Int : 386 ms Sinus bradycardia with 1st degree A-V block with Blocked Premature atrial complexes Otherwise normal ECG No previous ECGs available Confirmed by Krishan Pinto ([id number]) on 07/31/2023 8:16:29 AM Referred By: Confirmed By:Krishan Pinto
[2023-07-31] MEDS: FOLIC ACID 1 MG TAB PO SCH (08:18)
--- NOTE | 2023-07-31 08:23 | Electrocardiogram Report ---
Test Reason : Blood Pressure : / mmHG Vent. Rate : 050 BPM Atrial Rate : 050 BPM P-R Int : 242 ms QRS Dur : 096 ms QT Int : 408 ms P-R-T Axes : 056 018 017 degrees QTc Int : 371 ms Sinus bradycardia with blocked PACs and with 1st degree A-V block Otherwise normal ECG When compared with ECG of 30-JUL-2023 15:36, (unconfirmed) No significant change Confirmed by Krishan Pinto ([id number]) on 07/31/2023 8:22:37 AM Referred By: [facility] Confirmed By:Krishan Pinto
[2023-07-31] MEDS ORDERED: INFLUENZA VIRUS QUADRIVALENT VACCINE (IIV4) 0.5 ML SYR IM ONE (09:00)
--- NOTE | 2023-07-31 12:16 | Cardiology Consultation ---
"Date of Consultation July 31, 2023 Assessment & Plan (1) Arrhythmia: Plan Patient came in with worsening easy fatigability that has been ongoing for 8 months. He was found to have severe anemia with a Hgb of 6.0 and pancytopenia. He has complaints of dizziness, lightheadedness and chronic fatigue. Denies chest pain. (+) dyspnea on exertion. (+) HARRIS. Denies palpitations. Found to have Sinus rhythm with blocked PACs on his EKG. 1. Blocked PACs -pauses are brief, approximately 2 seconds -no intervention required at this time 2. Short runs of SVT vs Atach vs Aflutter -possible 1-2 min run of Atrial flutter on telemetry overnight -asymptomatic -continue to monitor with telemetry -even if he does have atrial flutter, it is brief and he is not a candidate for anticoagulation at this time given his severe anemia. -TTE ordered to assess for structural abnormalities We will continue to follow I provided 85 min of care to the patient in regards to his arrhythmia. History of Present Illness Reason for Consultation: Pauses on EKG Attending Physician: Aida Allen MD History of Present Illness Patient came in with worsening easy fatigability that has been ongoing for 8 months. He was found to have severe anemia with a Hgb of 6.0 and pancytopenia. He has complaints of dizziness, lightheadedness and chronic fatigue. Denies chest pain. (+) dyspnea on exertion. (+) HARRIS. Denies palpitations. Found to have Sinus rhythm with blocked PACs on his EKG. Allergies Allergy/AdvReac Type Severity Reaction Status Date / Time No Known Allergies Allergy Unverified 07/30/23 15:40 Home Medications Medication Instructions Recorded Confirmed Type acetaminophen 500 mg tablet 1,000 mg PO TID PRN Pain 07/30/23 07/30/23 History cholecalciferol (vitamin D3) 10 10 mcg PO DAILY 07/30/23 07/30/23 History mcg (400 unit) tablet (Vitamin D3) cyanocobalamin (vitamin B-12) 1,000 mcg IM .Q 2 WKS ON Wednesday07/30/23 07/30/23 History 1,000 mcg/mL injection solution epoetin anabel 10,000 unit/mL 10,000 unit subcut WK 07/30/23 07/30/23 History injection solution (Epogen) folic acid 1 mg tablet 1 mg PO DAILY 07/30/23 07/30/23 History mirtazapine 45 mg tablet 45 mg PO HS 07/30/23 07/30/23 History omeprazole 20 mg capsule,delayed 20 mg PO DAILY 07/30/23 07/30/23 History release prazosin 1 mg capsule 3 mg PO HS 07/30/23 07/30/23 History pyridoxine (vitamin B6) 100 mg 100 mg PO BID 07/30/23 07/30/23 History tablet (Vitamin B-6) sertraline 100 mg tablet 100 mg PO DAILY 07/30/23 07/30/23 History sertraline 50 mg tablet 50 mg PO DAILY 07/30/23 07/30/23 History Patient History Medical History Anemia Social History Smoking Status: Former smoker Hx Alcohol Use: No Hx Substance Use: No Preferred Language: Burundian Communication Ability: Effective Log Marker Required: No Beliefs That Will Affect Care: None Current Living Situation: Other Other Information That Helps Us Care for You: No Feels Safe at Home: Yes Assistive Devices: None Review of Systems Review of Systems: A comprehensive review of systems is otherwise negative unless noted above. Physical Exam Physical Exam: GEN: AAOx3; NAD HEENT: no JVD CV: RRR; S1+S2; no M/R/G PULM: CTA b/l; no wheezes, rales, or rhonchi ABD: soft; NTND EXT: no lower extremity edema Results & Data Vital Signs (Past 12 Hours) Vital Signs Temp Pulse Pulse Resp BP BP Pulse Ox 07/31/23 08:09 37.7 C H 56 L 18 153/77 H 99 07/31/23 08:00 53 L 07/31/23 08:00 07/31/23 03:10 36.8 C 48 L 20 156/73 H 100 07/31/23 00:21 36.8 C 51 L 16 140/68 97 O2 Del Method 07/31/23 08:09 Room Air 07/31/23 08:00 07/31/23 08:00 Room Air 07/31/23 03:10 Room Air 07/31/23 00:21 Laboratory Results Na | 139 | | 136-145 mmol/L | K | 3.7 | # | 3.5-5.1 mmol/L | | Delta: 4.7 on 07/30/23-1540 Cl | 109 | H | 98-107 mmol/L | CO2 | 25 | | 21-32 mmol/L | Gap | 5 | | 3-11 | BUN | 10 | | 6-23 mg/dl | Creat | 0.85 | | 0.6-1.4 mg/dl | Creat Calc PHA | 117.9 | | ml/min | | Est. Creatinine Clearance (Mod Cockcroft-Gault) for pharmacy | dosing purposes. EGFR AA | 116.1 | | ml/min | | Units: ml/min per 1.73 meters squared | | The estimated GFR (CKD-EPI equation) has not been validated | for inpatient settings and may not be an accurate reflection | of renal function in critically ill patients or those with | rapidly changing renal function (e.g. SCOTT). EGFR REX | 100.2 | | ml/min | | Units: ml/min per 1.73 meters squared | | The estimated GFR (CKD-EPI equation) has not been validated | for inpatient settings and may not be an accurate reflection | of renal function in critically ill patients or those with | rapidly changing renal function (e.g. SCOTT). BUN Creat Ratio | 11.8 | | 10-20 | Glu | 103 | H | 70-99(Fasting) mg/dl | Ca | 8.6 | | 8.6-10.3 mg/dl | Phos | 3.6 | | 2.5-4.9 mg/dl | MG | 2.1 | | 1.7-2.4 mg/dl | (1) Arrhythmia Arrhythmia type: premature depolarization Premature depolarization type: atrial Qualified Code(s): I49.1 - Atrial premature depolarization"
[2023-07-31 14:31] LABS: Hematocrit (blood only) 23.8 % (42.0-52.0); Hemoglobin 7.7 g/dl (14.0-18.0)
--- NOTE | 2023-07-31 14:34 | Hospitalist Progress Note ---
Date of Service July 31, 2023 Assessment & Plan (1) Anemia: Plan Easy fatigability Anemia Patient came in with worsening easy fatigability that has been ongoing for 8 months per patient. Patient reports he has been bone marrow tested and was told he was not making enough red cells. Patient also reports history of reflux disease and blood in his wipe but no black stool. Iron panel - higher iron, nl b12 and folate levels. LDH minimally elevated, bilirubin normal. Haptoglobin pending. FOBT neg. c/w home dose of PPI. Admitting hemoglobin of 6.0, s/p 2 units prbc so far, HnH in am 7.5; pt feels tired still, repeat HnH in afternoon, will likely need further blood transfusion. Mild temp elevation w/ blood transfusion, will consider irradiated blood for next transfusion if indicated. Hematology consult, irradiated blood going forward, contemplating BM biopsy, await final recs. Transfuse blood for symptomatic anemia or hemoglobin less than 7. Retrieve outpatient medical records regarding bone marrow test and hematology eval. Will follow. Arrythmia/Blocked PACs/Short runs of SVT vs Atach Vs Aflutter: Cardio on board, c/w telemetry. f/u TTE. Other chronic medical conditions: PTSD/depression/reflux disease --continue with/resume home meds as and when able. DVT prophylaxis: SCDs, ambulation in the room. Full code Admission and Anticipated Discharge Date Admission Date: July 30, 2023 Subjective Patient was seen and examined at bedside. Patient was lying in bed, on room air, resting comfortably, not in any acute distress. Patient with asymptomatic bradycardia and episodic sinus pauses overnight. Patient denies palpitation, continues to feel tired and weak. Physical Exam Physical Exam: GENERAL: Alert and oriented x3. NAD, on RA. Appears weak/tired. HEENT: No pallor, no icterus. Pupils equal, round and reactive to light. Oral mucosa moist. NECK: No JVD, no neck masses. HEART: S1 and S2 heard. Regular rate and rhythm. No murmur, no gallop. RESPIRATORY SYSTEM: Normal AP diameter. No accessory muscle use. No wheezing, no crackles. ABDOMEN: Soft, bowel sounds present, nontender, no distention. CENTRAL NERVOUS SYSTEM: No facial droop. Speech is clear. Obeys simple commands. Moves extremities. EXTREMITIES: No edema, no erythema seen. Results & Data Results & Data Vital Signs (Past 12 Hours) Vital Signs Temp Pulse Pulse Resp BP Pulse Ox O2 Del Method 07/31/23 11:11 37.6 C H 65 18 139/64 99 Room Air 07/31/23 08:09 37.7 C H 56 L 18 153/77 H 99 Room Air 07/31/23 08:00 53 L 07/31/23 08:00 Room Air 07/31/23 03:10 36.8 C 48 L 20 156/73 H 100 Room Air
[2023-07-31] MEDS: oxyCODONE HCL IR 5 MG TAB (IMMEDIATE RELEASE) PO PRN (17:34)
[2023-07-31] MEDS: MIRTAZAPINE SOLTAB 15 MG PO SCH (20:15)
--- NOTE | 2023-07-31 21:11 | Consultation ---
Date of Consultation July 31, 2023 Assessment & Plan (1) Pancytopenia: Pancytopenia with population of blasts and macrocytosis in a patient with prolonged symptomatology. B12, folic acid levels are in good range and TSH is normal. 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 On its face, the process suggests a disorder on the spectrum of myelodysplasia with excess blasts versus a smoldering acute leukemia. Peripheral smear review would be consistent with that focus. Marrow aspiration and biopsy will be pivotal in better distinguishing the exact diagnosis. Obtaining historical marrow biopsy results will set a better context but will not eliminate the need for an updated study. Additional components of the differential diagnosis could include drug effects. Sertraline and mirtazapine have very rare associations with hematopoietic toxicity but overall this seems unlikely. Especially as an incarcerated individual it is very unlikely he has major toxic exposures that could cause this. The prolonged symptomatology and lack of other more specific symptoms such as fever and prostration suggest against a major infectious cause The history of prolonged symptoms suggests that this is not a rapidly evolving process and indeed current platelet and ANC counts are stable and with good response to red cells it is not likely that he will have threatening anemia anytime soon. Whatever his disorder, he would likely benefit from initial evaluation and treatment planning through a quatern[facility] center and I would strongly consider transfer to [place] or some other similar facility for additional diagnostics and specialty evaluation. Without immediate threat, however, if that is not easily accomplished in the near future we can certainly proceed with bone marrow aspiration and biopsy the first of the week here to set the initial stage. In the meantime, would use irradiated blood products given the potential that he may be considered for stem cell transplantation as part of his treatment. Would transfuse to keep his hemoglobin above 7 g/dL. Platelet transfusions would only be required if he falls below a level of 10,000 or show signs of significant hemostatic compromise. Plan Transfusion support as above, patient needs to move towards updated diagnostic marrow aspiration and biopsy even as we try to assemble his historical findings. Would consider transfer to a quaternary center if that is feasible but if not accomplished in the near future, can proceed with initial marrow biopsy here. History of Present Illness Reason for Consultation: Pancytopenia Attending Physician: Aida Allen MD History of Present Illness Please note that this is a consultation constructed purely from review of the electronic database. I am working remotely and unable to speak directly with the patient or examine him. I reviewed the current admission records which seem to be an accurate source of relevant information but I am completely reliant on that for my conclusions and perspectives. If there are urgent concerns regarding the need for more direct [id number] review, you should consider transferring the patient to another institution. The evaluation is consultative in nature and all patient care and treatment decisions can either be accepted or rejected by the patient's primary hospital-based treating physician using their own independent medical judgment for the patient. Apparent 8-month prodrome of increasing fatigability, 6 sleepiness, exercise intolerance and lack of energy presented more acutely with hemoglobin of 6.1 g/dL. This is without signs or symptoms of acute febrile illness/infection. Apparently he has pursued a normal diet, has not noted karen melena or hematochezia except for some hemorrhoidal like bleeding on his toilet paper. 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 Allergies Allergy/AdvReac Type Severity Reaction Status Date / Time No Known Allergies Allergy Unverified 07/30/23 15:40 Home Medications Medication Instructions Recorded Confirmed Type acetaminophen 500 mg tablet 1,000 mg PO TID PRN Pain 07/30/23 07/30/23 History cholecalciferol (vitamin D3) 10 10 mcg PO DAILY 07/30/23 07/30/23 History mcg (400 unit) tablet (Vitamin D3) cyanocobalamin (vitamin B-12) 1,000 mcg IM .Q 2 WKS ON Wednesday07/30/23 07/30/23 History 1,000 mcg/mL injection solution epoetin anabel 10,000 unit/mL 10,000 unit subcut WK 07/30/23 07/30/23 History injection solution (Epogen) folic acid 1 mg tablet 1 mg PO DAILY 07/30/23 07/30/23 History mirtazapine 45 mg tablet 45 mg PO HS 07/30/23 07/30/23 History omeprazole 20 mg capsule,delayed 20 mg PO DAILY 07/30/23 07/30/23 History release prazosin 1 mg capsule 3 mg PO HS 07/30/23 07/30/23 History pyridoxine (vitamin B6) 100 mg 100 mg PO BID 07/30/23 07/30/23 History tablet (Vitamin B-6) sertraline 100 mg tablet 100 mg PO DAILY 07/30/23 07/30/23 History sertraline 50 mg tablet 50 mg PO DAILY 07/30/23 07/30/23 History Patient History Medical History Anemia Social History Smoking Status: Former smoker Hx Alcohol Use: No Hx Substance Use: No Preferred Language: [place] Communication Ability: Effective Cafe Attendant Required: No Beliefs That Will Affect Care: None Current Living Situation: Other Other Information That Helps Us Care for You: No Feels Safe at Home: Yes Assistive Devices: None Physical Exam Physical Exam: Vital signs are stable. Admission record exam does not suggest major focal abnormalities Results & Data Vital Signs (Past 12 Hours) Vital Signs Temp Pulse Pulse Resp BP Pulse Ox O2 Del Method 07/31/23 16:00 66 07/31/23 15:54 37.5 C 65 17 125/66 97 Room Air 07/31/23 11:11 37.6 C H 65 18 139/64 99 Room Air Laboratory Results Laboratory Results - last 24 hr 07/30/23 07/31/23 07/31/23 15:40 01:20 01:32 WBC 6.02 4.68 L RBC 1.71 L 2.21 L Hgb 6.0 L* 7.5 L Hct 19.0 L* 22.5 L MCV 111.1 H 101.8 H D MCH 35.1 H 33.9 MCHC 31.6 L 33.3 RDW Std Deviation 78.5 H 79.6 H RDW Coeff of Chang 21.2 H 23.0 H Plt Count 128 L 113 L MPV 13.6 H 11.6 Immature Gran % (Auto) Neut % (Auto) Lymph % (Auto) [place] % (Auto) Eos % (Auto) Baso % (Auto) Reticulocyte % (Auto) 4.7 H Neut # (Auto) Lymph # (Auto) [place] # (Auto) Eos # (Auto) Baso # (Auto) Reticulocyte # 0.10 Immature Gran # (Auto) Absolute Nucleated RBC 0.68 H 0.55 H Nucleated RBC % (auto) 11.3 11.8 Neutrophils % (Manual) 36 Lymphocytes % (Manual) 50 Monocytes % (Manual) 1 Eosinophils % (Manual) 2 Myelocytes % (Man) 2 Promyelocytes % (Man) 1 Blast Cells % (Manual) 8 Neutrophils # (Manual) 2.17 Total Absolute Neuts 2.17 Lymphocytes # (Manual) 3.01 Total Abs Lymphocytes 3.01 Monocytes # (Manual) 0.06 L Eosinophils # (Manual) 0.12 Myelocytes # (Manual) 0.12 H Promyelocytes # (Man) 0.06 H Blast Cells # (Man) 0.48 H Polychromasia 2+ Poikilocytosis Present Anisocytosis Present Tear Drop Cells 1+ Ovalocytes 2+ Acanthocytes (Spur) 1+ Peripher Smr Path Cons Haptoglobin Pending Sodium 139 Potassium 3.7 D Chloride 109 H Carbon Dioxide 25 Anion Gap 5 BUN 10 Creatinine 0.85 Est Cr Clr Drug Dosing 117.9 Est GFR ( Amer) 116.1 Est GFR (Non-Af Amer) 100.2 BUN/Creatinine Ratio 11.8 Glucose 103 H Calcium 8.6 Phosphorus 3.6 Magnesium 2.1 Nasal Screen MRSA (PCR) Stool Occult Bld Scrn Lead Anaplasma Smear See Comment Babesia Smear See Comment Blood Type B Positive Antibody Screen NEGATIVE Crossmatch See Detail 07/31/23 07/31/23 07/31/23 02:00 08:29 14:03 WBC RBC Hgb 7.7 L Hct 23.8 L MCV MCH MCHC RDW Std Deviation RDW Coeff of Chang Plt Count MPV Immature Gran % (Auto) Neut % (Auto) Lymph % (Auto) [place] % (Auto) Eos % (Auto) Baso % (Auto) Reticulocyte % (Auto) Neut # (Auto) Lymph # (Auto) [place] # (Auto) Eos # (Auto) Baso # (Auto) Reticulocyte # Immature Gran # (Auto) Absolute Nucleated RBC Nucleated RBC % (auto) Neutrophils % (Manual) Lymphocytes % (Manual) Monocytes % (Manual) Eosinophils % (Manual) Myelocytes % (Man) Promyelocytes % (Man) Blast Cells % (Manual) Neutrophils # (Manual) Total Absolute Neuts Lymphocytes # (Manual) Total Abs Lymphocytes Monocytes # (Manual) Eosinophils # (Manual) Myelocytes # (Manual) Promyelocytes # (Man) Blast Cells # (Man) Polychromasia Poikilocytosis Anisocytosis Tear Drop Cells Ovalocytes Acanthocytes (Spur) Peripher Smr Path Cons Haptoglobin Sodium Potassium Chloride Carbon Dioxide Anion Gap BUN Creatinine Est Cr Clr Drug Dosing Est GFR ( Amer) Est GFR (Non-Af Amer) BUN/Creatinine Ratio Glucose Calcium Phosphorus Magnesium Nasal Screen MRSA (PCR) Negative Stool Occult Bld Scrn Lead Pending Anaplasma Smear Babesia Smear Blood Type Antibody Screen Crossmatch 07/31/23 Unknown WBC RBC Hgb Hct MCV MCH MCHC RDW Std Deviation RDW Coeff of Chang Plt Count MPV Immature Gran % (Auto) Neut % (Auto) Lymph % (Auto) [place] % (Auto) Eos % (Auto) Baso % (Auto) Reticulocyte % (Auto) Neut # (Auto) Lymph # (Auto) [place] # (Auto) Eos # (Auto) Baso # (Auto) Reticulocyte # Immature Gran # (Auto) Absolute Nucleated RBC Nucleated RBC % (auto) Neutrophils % (Manual) Lymphocytes % (Manual) Monocytes % (Manual) Eosinophils % (Manual) Myelocytes % (Man) Promyelocytes % (Man) Blast Cells % (Manual) Neutrophils # (Manual) Total Absolute Neuts Lymphocytes # (Manual) Total Abs Lymphocytes Monocytes # (Manual) Eosinophils # (Manual) Myelocytes # (Manual) Promyelocytes # (Man) Blast Cells # (Man) Polychromasia Poikilocytosis Anisocytosis Tear Drop Cells Ovalocytes Acanthocytes (Spur) Peripher Smr Path Cons Haptoglobin Sodium Potassium Chloride Carbon Dioxide Anion Gap BUN Creatinine Est Cr Clr Drug Dosing Est GFR ( Amer) Est GFR (Non-Af Amer) BUN/Creatinine Ratio Glucose Calcium Phosphorus Magnesium Nasal Screen MRSA (PCR) Stool Occult Bld Scrn Negative Lead Anaplasma Smear Babesia Smear Blood Type Antibody Screen Crossmatch Diagnostic Findings Chest X-Ray 07/30/23 15:22 SINGLE VIEW CHEST CLINICAL HISTORY: Generalized weakness. FINDINGS: An AP, portable, upright chest radiograph is obtained. No prior studies are available for comparison at the time of dictation. The cardiomedia stinal silhouette appears enlarged. The pulmonary vasculature is noncongested. The lungs and pleural spaces are clear. No pneumothorax is seen. The bony thorax is grossly intact. IMPRESSION: 1. The cardiac silhouette appears enlarged. 2. The lung are clear. ACT 112: Negative or not required by law. Electronically signed by: Darren Ramirez M.D. 07/30/2023 5:05 PM PG Care Time/CCT Total # of Minutes Spent Total Time Spent with Patient: Total time spent is greater than 50% in coordination of care (as documented) at patient's floor/unit and/or counseling patient: Coding Level of Care Code 47665 IN/OBS CONSULT LVL 3,45M Diagnoses Pancytopenia D61.818
[2023-07-31] MEDS ORDERED: MELATONIN 3 MG TAB PO PRN (23:27)
[2023-07-31] MEDS ORDERED: ACETAMINOPHEN 325 MG TAB PO STA (23:28)
[2023-07-31] MEDS ORDERED: NSS + 20MEQ KCL 20 MEQ/1,000 ML BAG IV ONE (23:45)
--- NOTE | 2023-08-01 00:06 | Communication Note ---
Date of Service: August 01, 2023 Patient with recurrent fever overnight. New dry cough and back pain complaints as per RN. AP Fever Rule out infectious causes Blood cultures COVID swab, Chest x-ray now given dry cough CT abdomen pelvis Re: Back pain
--- NOTE | 2023-08-01 00:10 | XRay Report ---
SINGLE VIEW CHEST CLINICAL HISTORY: Cough. FINDINGS: An AP, portable, upright chest radiograph is compared to study dated 07/30/2023. The examin ation is degraded by portable technique and patient rotation. The cardiomediastinal silhouette appea rs enlarged. The pulmonary vasculature is noncongested. The lungs and pleural spaces are clear. No pn eumothorax is seen. The bony thorax is grossly intact. IMPRESSION: 1. The cardiac silhouette appears enlarged. 2. The lung are clear. ACT 112: Negative or not required by law. Electronically signed by: Darren Ramirez M.D. 08/01/2023 12:09 AM
[2023-08-01 00:55] LABS: Appearance Urine Clear (Clear); Bilirubin Urine Negative (Negative); Blood Urine Negative (Negative); Color Urine Yellow; Glucose Urine UA Negative (Negative); Ketones Urine Negative (Negative); Leukocyte Esterase Urine Negative (Negative); Nitrite Urine Negative (Negative); Protein Urine Negative (Negative); Specific Gravity Urine 1.005 (1.000-1.030); Urobilinogen Urine Negative (Negative)
[2023-08-01 01:03] LABS: Influenza A virus by PCR Negative (Neg); Influenza B virus by PCR Negative (Neg); RSV by PCR Negative (Neg); SARS CoV2 RNA(COVID-19) Ceph NEGATIVE (Negative)
[2023-08-01 02:17] LABS: Hematocrit (blood only) 21.2 % (42.0-52.0); Hemoglobin 7.2 g/dl (14.0-18.0); Mean Corpuscular Hemoglobin 33.8 pg (25.0-34.0); Mean Corpuscular Volume 99.5 fL (80.0-100.0); Mean Platelet Volume 12.6 fL (9.4-12.4); Nucleated RBC # (auto) 0.73 K/uL (0.00-0.12); Nucleated RBC % (auto) 9.2 %; Platelet Count 119 K/uL (130-400); RDW Standard Deviation 78.3 fL (36.4-46.3); Red Blood Count 2.13 M/uL (4.70-6.10); White Blood Count 7.97 K/ul (4.8-10.8)
[2023-08-01 02:35] LABS: Albumin Globulin Ratio 1.4 (0.9-2); Albumin Level 3.8 gm/dl (3.4-5.0); BUN Creatinine Ratio 13.3 (10-20); Bilirubin,Total 1.2 mg/dl (0.2-1.0); Calcium 8.6 mg/dl (8.6-10.3); Creatinine Clr Calc Pharmacy 102.5 ml/min; Est GFR (African American) 102.3 ml/min; Est GFR (Non-African American) 88.3 ml/min; Globulin 2.7 gm/dl (2.5-4.0); Potassium 3.8 mmol/L (3.5-5.1); Total Protein 6.5 gm/dl (6.0-8.3)
[2023-08-01 02:44] LABS: ALC (manual) 2.55 K/uL (1.2-3.4); ANC (manual) 4.54 K/uL (1.4-6.5); Anisocytosis Present; Blast # (manual) 0.56 K/uL (0-0); Blast Cells % (manual) 7 %; Lymphocytes # (manual) 2.55 K/uL (1.2-3.4); Lymphocytes % (manual) 32 %; Monocytes # (manual) 0.08 K/uL (0.11-0.59); Monocytes % (manual) 1 %; Myelocytes # (manual) 0.24 K/uL (0-0); Myelocytes % (manual) 3 %; Neutrophils # (manual) 4.54 K/uL (1.40-6.50); Neutrophils % (manual) 57 %; Ovalocytes 1+; Polychromasia 1+; Tear Drop Cells 1+
--- NOTE | 2023-08-01 07:22 | CT Scan Report ---
Exam(s): CT ABDOMEN + PELVIS Without Contrast EXAM: CT Abdomen and Pelvis Without Intravenous Contrast CLINICAL HISTORY: Reason for exam: back pain, fever. TECHNIQUE: Axial computed tomography images of the abdomen and pelvis without intravenous contrast. CTDI is 21.97 mGy and DLP is 1101.4 mGy-cm. Automated exposure control was utilized for the study. A dose lowering technique was utilized adhering to the principles of ALARA. COMPARISON: No relevant prior studies available. FINDINGS: Limitations: Limited evaluation in the absence of contrast. Lung bases: Unremarkable. No mass. No consolidation. ABDOMEN: Liver: Unremarkable. Gallbladder and bile ducts: Unremarkable. No calcified stones. No ductal dilation. Pancreas: Unremarkable. No ductal dilation. Spleen: Unremarkable. No splenomegaly. Adrenals: Unremarkable. No mass. Kidneys and ureters: No evidence of radiopaque renal calculi or signs of collecting system dilatation. Stomach and bowel: No evidence of bowel obstruction. No mucosal thickening. PELVIS: Appendix: Normal appendix. Bladder: Unremarkable. No stones. Reproductive: Unremarkable as visualized. ABDOMEN and PELVIS: Intraperitoneal space: Unremarkable. No free air. No significant fluid collection. Bones/joints: Plate and screw fixation noted overlying the right iliac bone extending to the right acetabulum. Additional intramedullary nail noted within the right femur. 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 Degenerative changes in the spine. No acute fracture. No dislocation. Soft tissues: Gynecomastia. Vasculature: Unremarkable. No abdominal aortic aneurysm. Lymph nodes: Unremarkable. No enlarged lymph nodes. IMPRESSION: 1. Limited evaluation in the absence of contrast. 2. No evidence of radiopaque renal calculi or signs of collecting system dilatation. 3. No other acute findings. 4. Incidental findings as described. Electronically signed by: Vidal Colvin MD 08/01/23 07:21 AM
[2023-08-01] MEDS ORDERED: SODIUM CHLORIDE 0.9% 250 ML IV PRN (08:00)
[2023-08-01] MEDS ORDERED: ACETAMINOPHEN 325 MG TAB PO ONE (08:00)
[2023-08-01] MEDS ORDERED: PIPERACILLIN/TAZOBACTAM 4.5 GM in DEXTROSE 5% MINI-B 100 ML IV ONE (08:30)
[2023-08-01] MEDS: PYRIDOXINE HCL 50 MG TAB PO SCH ×2 (09:47→22:11)
[2023-08-01] MEDS: SERTRALINE HCL 50 MG TABLET PO SCH (09:47)
[2023-08-01] MEDS: FOLIC ACID 1 MG TAB PO SCH (09:47)
[2023-08-01] MEDS: CHOLECALCIFEROL 400 UNITS 10 MCG TAB PO SCH (09:47)
[2023-08-01] MEDS: SERTRALINE HCL 100 MG TABLET PO SCH (09:47)
[2023-08-01] MEDS: PANTOprazole 40 MG TAB PO SCH (11:02)
--- NOTE | 2023-08-01 11:45 | Cardiology Progress Note ---
"Date of Service August 01, 2023 Assessment & Plan (1) Arrhythmia: Plan Patient came in with worsening easy fatigability that has been ongoing for 8 months. He was found to have severe anemia with a Hgb of 6.0 and pancytopenia. He has complaints of dizziness, lightheadedness and chronic fatigue. Denies chest pain. (+) dyspnea on exertion. (+) HARRIS. Denies palpitations. Found to have Sinus rhythm with blocked PACs on his EKG. 1. Blocked PACs -pauses are brief, approximately 2 seconds -had multiple blocked PACs last night and early this morning with sustained HR in the 30s -recommend ambulating the patient to ensure that he does not get lightheadedness or dizziness/presyncope (he denies this ever being a problem in the past) 2. Short runs of Aflutter -possible 1-2 min run of Atrial flutter on telemetry 2 nights ago -asymptomatic -continue to monitor with telemetry -he is not a candidate for anticoagulation at this time given his severe anemia. -of note, he does carry a remote history of atrial flutter and was not on a/c as an outpatient -Normal LVEF on TTE We will continue to follow I provided 55 min of care to the patient in regards to his arrhythmia. Admission and Anticipated Discharge Date Admission Date: July 30, 2023 Subjective Patient was seen and examined at bedside. Patient was lying in bed, on room air, resting comfortably, not in any acute distress. Patient with asymptomatic bradycardia and episodic sinus pauses overnight. Patient denies palpitation, continues to feel tired and weak. Review of Systems Review of Systems: A comprehensive review of systems is otherwise negative unless noted above. Physical Exam Physical Exam: GEN: AAOx3; NAD HEENT: no JVD CV: RRR; S1+S2; no M/R/G PULM: CTA b/l; no wheezes, rales, or rhonchi ABD: soft; NTND EXT: no lower extremity edema Results & Data Vital Signs (Past 12 Hours) Vital Signs Temp Pulse Pulse Pulse Resp BP BP 08/01/23 11:28 36.7 C 50 L 18 120/74 08/01/23 10:58 36.7 C 52 L 18 122/68 08/01/23 10:43 36.6 C 57 L 18 147/74 H 08/01/23 10:26 36.7 C 48 L 18 126/74 08/01/23 07:46 51 L 08/01/23 07:20 36.6 C 51 L 18 120/62 08/01/23 03:36 36.8 C 42 L 16 104/53 L Pulse Ox O2 Del Method 08/01/23 11:28 97 08/01/23 10:58 96 08/01/23 10:43 97 08/01/23 10:26 95 08/01/23 07:46 08/01/23 07:20 97 Room Air 08/01/23 03:36 98 Room Air Laboratory Results Na | 137 | | 136-145 mmol/L | K | 3.8 | | 3.5-5.1 mmol/L | Cl | 106 | | 98-107 mmol/L | CO2 | 26 | | 21-32 mmol/L | Gap | 5 | | 3-11 | BUN | 13 | | 6-23 mg/dl | Creat | 0.98 | | 0.6-1.4 mg/dl | Creat Calc PHA | 102.5 | | ml/min | | Est. Creatinine Clearance (Mod Cockcroft-Gault) for pharmacy | dosing purposes. EGFR AA | 102.3 | | ml/min | | Units: ml/min per 1.73 meters squared | | The estimated GFR (CKD-EPI equation) has not been validated | for inpatient settings and may not be an accurate reflection | of renal function in critically ill patients or those with | rapidly changing renal function (e.g. SCOTT). EGFR REX | 88.3 | | ml/min | | Units: ml/min per 1.73 meters squared | | The estimated GFR (CKD-EPI equation) has not been validated | for inpatient settings and may not be an accurate reflection | of renal function in critically ill patients or those with | rapidly changing renal function (e.g. SCOTT). BUN Creat Ratio | 13.3 | | 10-20 | Glu | 119 | H | 70-99(Fasting) mg/dl | Ca | 8.6 | | 8.6-10.3 mg/dl | Total Bilirubin | 1.2 | H | 0.2-1.0 mg/dl | AST | 32 | | 13-39 U/L | Alt | 25 | | 7-52 U/L | TP | 6.5 | | 6.0-8.3 gm/dl | Alb | 3.8 | | 3.4-5.0 gm/dl | Globulin | 2.7 | | 2.5-4.0 gm/dl | A/G Ratio | 1.4 | | 0.9-2 | Alk Phos | 73 | | 34-104 U/L | (1) Arrhythmia Arrhythmia type: premature depolarization Premature depolarization type: atrial Qualified Code(s): I49.1 - Atrial premature depolarization"
--- NOTE | 2023-08-01 13:43 | Hospitalist Progress Note ---
Date of Service August 01, 2023 Assessment & Plan (1) Anemia: Plan Easy fatigability Anemia Patient came in with worsening easy fatigability that has been ongoing for 8 months per patient. Patient reports he has been bone marrow tested and was told he was not making enough red cells. Patient also reports history of reflux disease and blood in his wipe but no black stool. Iron panel - higher iron, nl b12 and folate levels. LDH minimally elevated, bilirubin normal. Haptoglobin pending. FOBT neg. c/w home dose of PPI. Admitting hemoglobin of 6.0, s/p 2 units prbc so far, HnH in am 7.2; pt feels tired still, transfusing 1 unit again, repeat HnH in afternoon. irradiated blood transfusion needed. Hematology consult, irradiated blood going forward, contemplating BM biopsy, await final recs. Transfuse blood for symptomatic anemia or hemoglobin less than 7. Retrieve outpatient medical records regarding bone marrow test and hematology eval. Will follow. Mantoux test done on 02/17/23 negative. Will obtain HIV test. Arrythmia/Blocked PACs/Short runs of SVT vs Atach Vs Aflutter: Cardio on board, c/w telemetry. reviewed TTE. Other chronic medical conditions: PTSD/depression/reflux disease --continue with/resume home meds as and when able. DVT prophylaxis: SCDs, ambulation in the room. Full code Admission and Anticipated Discharge Date Admission Date: July 30, 2023 Subjective Patient was seen and examined at bedside. Patient was lying in bed, on room air, resting comfortably, not in any acute distress. Patient with multiple blocked PACs and sustained heart rate in the 30s. Patient denies palpitation, continues to feel tired and weak. Overnight patient became febrile, infectious workup has been sent including CXR/CT Chest, procal; so far neg. Bl Cx also sent, will follow. Will start on empiric atb. Physical Exam Physical Exam: GENERAL: Alert and oriented x3. NAD, on RA. Appears weak/tired. HEENT: No pallor, no icterus. Pupils equal, round and reactive to light. Oral mucosa moist. NECK: No JVD, no neck masses. HEART: S1 and S2 heard. Regular rate and rhythm. No murmur, no gallop. RESPIRATORY SYSTEM: Normal AP diameter. No accessory muscle use. No wheezing, no crackles. ABDOMEN: Soft, bowel sounds present, nontender, no distention. CENTRAL NERVOUS SYSTEM: No facial droop. Speech is clear. Obeys simple commands. Moves extremities. EXTREMITIES: No edema, no erythema seen. Results & Data Results & Data Vital Signs (Past 12 Hours) Vital Signs Temp Pulse Pulse Pulse Resp BP BP 08/01/23 12:57 36.5 C 47 L 18 130/68 08/01/23 12:43 36.7 C 49 L 18 136/84 08/01/23 12:28 36.7 C 49 L 18 136/84 08/01/23 11:28 36.7 C 50 L 18 120/74 08/01/23 10:58 36.7 C 52 L 18 122/68 08/01/23 10:43 36.6 C 57 L 18 147/74 H 08/01/23 10:26 36.7 C 48 L 18 126/74 08/01/23 07:46 51 L 08/01/23 07:20 36.6 C 51 L 18 120/62 08/01/23 03:36 36.8 C 42 L 16 104/53 L Pulse Ox O2 Del Method O2 Flow Rate 08/01/23 12:57 98 08/01/23 12:43 96 0 08/01/23 12:28 96 08/01/23 11:28 97 08/01/23 10:58 96 08/01/23 10:43 97 08/01/23 10:26 95 08/01/23 07:46 08/01/23 07:20 97 Room Air 08/01/23 03:36 98 Room Air
[2023-08-01] MEDS: PIPERACILLIN/TAZOBACTAM 4.5 GM in DEXTROSE 5% MINI-B 100 ML IV SCH ×2 (16:05→22:08)
[2023-08-01] MEDS: oxyCODONE HCL IR 5 MG TAB (IMMEDIATE RELEASE) PO PRN (17:23)
[2023-08-01] MEDS: ACETAMINOPHEN 325 MG TAB PO PRN ×2 (17:26→22:09)
[2023-08-01 19:04] LABS: Hematocrit (blood only) 28.8 % (42.0-52.0); Hemoglobin 9.6 g/dl (14.0-18.0)
[2023-08-01] MEDS: MIRTAZAPINE SOLTAB 15 MG PO SCH (22:11)
[2023-08-02] MEDS: oxyCODONE HCL IR 5 MG TAB (IMMEDIATE RELEASE) PO PRN ×2 (04:10→13:51)
[2023-08-02] MEDS: PIPERACILLIN/TAZOBACTAM 4.5 GM in DEXTROSE 5% MINI-B 100 ML IV SCH ×3 (05:38→22:00)
[2023-08-02 06:24] LABS: Hematocrit (blood only) 27.5 % (42.0-52.0); Hemoglobin 9.5 g/dl (14.0-18.0); Mean Corpuscular Hemoglobin 32.8 pg (25.0-34.0); Mean Corpuscular Hgb Conc 34.5 g/dL (32.0-36.0); Mean Corpuscular Volume 94.8 fL (80.0-100.0); Nucleated RBC # (auto) 0.82 K/uL (0.00-0.12); Nucleated RBC % (auto) 8.5 %; Platelet Count 127 K/uL (130-400); RDW Coefficient of Variation 21.3 % (11.5-14.5); RDW Standard Deviation 69.5 fL (36.4-46.3); White Blood Count 9.61 K/ul (4.8-10.8)
[2023-08-02 06:44] LABS: BUN Creatinine Ratio 14.8 (10-20); Calcium 8.7 mg/dl (8.6-10.3); Est GFR (Non-African American) 78.5 ml/min; Magnesium 1.8 mg/dl (1.7-2.4); Phosphorus 3.7 mg/dl (2.5-4.9); Potassium 4.4 mmol/L (3.5-5.1)
[2023-08-02] MEDS: PYRIDOXINE HCL 50 MG TAB PO SCH ×2 (09:10→22:00)
[2023-08-02] MEDS: SERTRALINE HCL 100 MG TABLET PO SCH (09:10)
[2023-08-02] MEDS: PANTOprazole 40 MG TAB PO SCH (09:10)
[2023-08-02] MEDS: FOLIC ACID 1 MG TAB PO SCH (09:10)
[2023-08-02] MEDS: SERTRALINE HCL 50 MG TABLET PO SCH (09:10)
[2023-08-02] MEDS: ACETAMINOPHEN 325 MG TAB PO PRN ×2 (09:14→20:12)
--- NOTE | 2023-08-02 09:35 | Cardiology Progress Note ---
Date of Service August 02, 2023 Assessment & Plan (1) Arrhythmia: Plan Patient came in with worsening easy fatigability that has been ongoing for 8 months. He was found to have severe anemia with a Hgb of 6.0 and pancytopenia. He has complaints of dizziness, lightheadedness and chronic fatigue. Denies chest pain. (+) dyspnea on exertion. (+) HARRIS. Denies palpitations. Found to have Sinus rhythm with blocked PACs on his EKG. 1. Blocked PACs -pauses are brief, approximately 2 seconds -Consider ambulating the patient to ensure that he does not get lightheadedness or dizziness/presyncope (he denies this ever being a problem in the past) 2. Short runs of Aflutter -possible 1-2 min run of Atrial flutter on telemetry 3 nights ago -asymptomatic -continue to monitor with telemetry -he is not a candidate for anticoagulation at this time given his severe anemia. -of note, he does carry a remote history of atrial flutter and was not on a/c as an outpatient -Normal LVEF on TTE We will continue to follow I provided 20 min of care to the patient in regards to his arrhythmia. Admission and Anticipated Discharge Date Admission Date: July 30, 2023 Subjective Patient seen in cardiology follow-up of arrhythmia. No cardiac complaints. Telemetry reveals sinus bradycardia in the 50s with blocked PACs, no prolonged pauses. No recurrent atrial flutter episodes. Physical Exam Physical Exam: GEN: AAOx3; NAD HEENT: no JVD CV: RRR; S1+S2; no M/R/G PULM: CTA b/l; no wheezes, rales, or rhonchi ABD: soft; NTND EXT: no lower extremity edema Results & Data Vital Signs (Past 12 Hours) Vital Signs Temp Pulse Pulse Resp BP Pulse Ox O2 Del Method 08/02/23 07:58 56 L 08/02/23 07:10 36.9 C 56 L 17 152/81 H 95 Room Air 08/02/23 02:25 36.8 C 52 L 16 157/87 H 96 Room Air 08/01/23 22:20 36.5 C 54 L 16 166/82 H 96 Room Air 08/01/23 22:00 Room Air 08/01/23 21:58 48 L Diagnostic Findings Echocardiogram performed 07/31/2023 revealed mild concentric left ventricular hypertrophy, no segmental left ventricular wall motion abnormalities, LVEF in the range of 60 to 65%, mild left atrial dilatation. The evaluation of left ventricular diastolic function is indeterminate due to the irregular rhythm. (1) Arrhythmia Arrhythmia type: premature depolarization Premature depolarization type: atrial Qualified Code(s): I49.1 - Atrial premature depolarization
[2023-08-02] MEDS: CHOLECALCIFEROL 400 UNITS 10 MCG TAB PO SCH (09:59)
--- NOTE | 2023-08-02 15:53 | Hospitalist Progress Note ---
Date of Service August 02, 2023 Assessment & Plan (1) Anemia: Plan Easy fatigability Anemia Patient came in with worsening easy fatigability that has been ongoing for 8 months per patient. Patient reports he has been bone marrow tested and was told he was not making enough red cells. Patient also reports history of reflux disease and blood in his wipe but no black stool. Iron panel - higher iron, nl b12 and folate levels. LDH minimally elevated, bilirubin normal. Haptoglobin pending. FOBT neg. c/w home dose of PPI. Admitting hemoglobin of 6.0, s/p 2 units prbc so far, HnH in am 9.5; pt feels improving fatiguability and tiredness irradiated blood transfusion as needed. Hematology consult, irradiated blood going forward, contemplating BM biopsy, await final recs. Transfuse blood for symptomatic anemia or hemoglobin less than 7. OP BM biopsy from 06/09/2023: Hypercellular marrow with atypical maturing trilineage hematopoiesis, no increase in blasts, myelofibrosis, decreased storage iron. Mantoux test done on 02/17/23 negative. HIV test pending. Hemoglobin is stable, patient reports feeling better. On empiric antibiotic for febrile episodes earlier in admission, follow blood culture, if negative for 48 hours, DC antibiotic. Arrythmia/Blocked PACs/Short runs of SVT vs Atach Vs Aflutter: Cardio on board, c/w telemetry. reviewed TTE. Other chronic medical conditions: PTSD/depression/reflux disease --continue with/resume home meds as and when able. DVT prophylaxis: SCDs, ambulation in the room. Full code Admission and Anticipated Discharge Date Admission Date: July 30, 2023 Subjective Patient was seen and examined at bedside. Patient was lying in bed, on room air, resting comfortably, not in any acute distress. Patient denies palpitation, continues to feel tired and weak. No issues overnight per pt. Reports improving weakness/fatiguability. Hb stable. Physical Exam Physical Exam: GENERAL: Alert and oriented x3. NAD, on RA. HEENT: No pallor, no icterus. Pupils equal, round and reactive to light. Oral mucosa moist. NECK: No JVD, no neck masses. HEART: S1 and S2 heard. Regular rate and rhythm. No murmur, no gallop. RESPIRATORY SYSTEM: Normal AP diameter. No accessory muscle use. No wheezing, no crackles. ABDOMEN: Soft, bowel sounds present, nontender, no distention. CENTRAL NERVOUS SYSTEM: No facial droop. Speech is clear. Obeys simple commands. Moves extremities. EXTREMITIES: No edema, no erythema seen. Results & Data Results & Data Vital Signs (Past 12 Hours) Vital Signs Temp Pulse Pulse Resp BP Pulse Ox O2 Del Method 08/02/23 12:02 37.1 C 55 L 17 137/69 94 Room Air 08/02/23 10:28 Room Air 08/02/23 07:58 56 L 08/02/23 07:10 36.9 C 56 L 17 152/81 H 95 Room Air
--- NOTE | 2023-08-02 17:55 | Hospitalist Progress Note ---
Date of Service August 02, 2023 Assessment & Plan (1) Pancytopenia: Plan: Platelets have remained stable, hemoglobin significantly improved after 4 units of transfusion suggesting a good response and therefore production problems rather than Red cell destruction or bleeding. White count is technically "normalize" but whether that represents some sort of recovery from acute on chronic process versus further progression of an underlying abnormal tone of hide cells is unclear without differential. Plan Should not need further transfusion. With good stabilization of counts we can probably proceed with marrow aspiration biopsy through interventional radiology here rather than having to acutely transfer to [place] though that remains an important option to consider would send another manual differential tomorrow to reassess the blasts as whether we are seeing improving or worsening picture with respect to the white blood cell count Admission and Anticipated Discharge Date Admission Date: July 30, 2023 Subjective This is a quick lab review note only. Full [id number] review will be accomplished tomorrow. Results & Data Results & Data Vital Signs (Past 12 Hours) Vital Signs Temp Pulse Pulse Resp BP Pulse Ox O2 Del Method 08/02/23 15:58 37.1 C 56 L 17 138/79 97 Room Air 08/02/23 12:02 37.1 C 55 L 17 137/69 94 Room Air 08/02/23 10:28 Room Air 08/02/23 07:58 56 L 08/02/23 07:10 36.9 C 56 L 17 152/81 H 95 Room Air Laboratory Results Laboratory Results - last 24 hr 07/31/23 07/31/23 08/01/23 01:32 08:29 17:02 WBC RBC Hgb 9.6 L Hct 28.8 L MCV MCH MCHC RDW Std Deviation RDW Coeff of Chang Plt Count Absolute Nucleated RBC Nucleated RBC % (auto) Haptoglobin <8 L Sodium Potassium Chloride Carbon Dioxide Anion Gap BUN Creatinine Est Cr Clr Drug Dosing Est GFR ( Amer) Est GFR (Non-Af Amer) BUN/Creatinine Ratio Glucose Calcium Phosphorus Magnesium Lead <1.0 08/02/23 05:36 WBC 9.61 RBC 2.90 L Hgb 9.5 L Hct 27.5 L MCV 94.8 MCH 32.8 MCHC 34.5 RDW Std Deviation 69.5 H RDW Coeff of Chang 21.3 H Plt Count 127 L Absolute Nucleated RBC 0.82 H Nucleated RBC % (auto) 8.5 Haptoglobin Sodium 138 Potassium 4.4 Chloride 107 Carbon Dioxide 27 Anion Gap 4 BUN 16 Creatinine 1.08 Est Cr Clr Drug Dosing 93.0 Est GFR ( Amer) 91.0 Est GFR (Non-Af Amer) 78.5 BUN/Creatinine Ratio 14.8 Glucose 114 H Calcium 8.7 Phosphorus 3.7 Magnesium 1.8 Lead PG Care Time/CCT Total # of Minutes Spent Total Time Spent with Patient: Total time spent is greater than 50% in coordination of care (as documented) at patient's floor/unit and/or counseling patient: Coding Level of Care Code None Diagnoses Pancytopenia D61.818
[2023-08-02] MEDS: MIRTAZAPINE SOLTAB 15 MG PO SCH (22:00)
[2023-08-03 01:53] LABS: Babesia microti DNA Not Detected (Not Detected)
[2023-08-03] MEDS: PIPERACILLIN/TAZOBACTAM 4.5 GM in DEXTROSE 5% MINI-B 100 ML IV SCH (05:34)
[2023-08-03 06:31] LABS: BUN Creatinine Ratio 17.9 (10-20); Calcium 9.2 mg/dl (8.6-10.3); Creatinine Clr Calc Pharmacy 94.8 ml/min; Est GFR (African American) 93.1 ml/min; Est GFR (Non-African American) 80.3 ml/min; Potassium 4.7 mmol/L (3.5-5.1)
[2023-08-03 06:56] LABS: Hematocrit (blood only) 30.5 % (42.0-52.0); Hemoglobin 10.1 g/dl (14.0-18.0); Mean Corpuscular Hemoglobin 32.3 pg (25.0-34.0); Mean Corpuscular Hgb Conc 33.1 g/dL (32.0-36.0); Mean Corpuscular Volume 97.4 fL (80.0-100.0); Mean Platelet Volume 12.4 fL (9.4-12.4); Nucleated RBC # (auto) 0.92 K/uL (0.00-0.12); Nucleated RBC % (auto) 8.9 %; Platelet Count 134 K/uL (130-400); RDW Coefficient of Variation 21.2 % (11.5-14.5); RDW Standard Deviation 71.7 fL (36.4-46.3); Red Blood Count 3.13 M/uL (4.70-6.10); White Blood Count 10.28 K/ul (4.8-10.8)
[2023-08-03 07:09] LABS: Anisocytosis Present; Basophils % (manual) 1 %; Blast Cells % (manual) 23 %; Metamyelocytes % (manual) 3 %; Monocytes % (manual) 3 %; Myelocytes % (manual) 6 %; Neutrophils % (manual) 27 %; Ovalocytes 1+; Polychromasia 1+; Schistocytes 1+; Tear Drop Cells 1+
[2023-08-03 07:10] LABS: ANC (manual) 2.78 K/uL (1.4-6.5); Blast # (manual) 2.36 K/uL (0-0); Lymphocytes % (manual) 37 %; Metamyelocytes # (manual) 0.31 K/uL (0-0); Monocytes # (manual) 0.31 K/uL (0.11-0.59); Myelocytes # (manual) 0.62 K/uL (0-0); Neutrophils # (manual) 2.78 K/uL (1.40-6.50)
[2023-08-03] MEDS: SERTRALINE HCL 100 MG TABLET PO SCH (08:21)
[2023-08-03] MEDS: PANTOprazole 40 MG TAB PO SCH (08:21)
[2023-08-03] MEDS: FOLIC ACID 1 MG TAB PO SCH (08:22)
[2023-08-03] MEDS: PYRIDOXINE HCL 50 MG TAB PO SCH (08:22)
[2023-08-03] MEDS: SERTRALINE HCL 50 MG TABLET PO SCH (08:22)
[2023-08-03] MEDS: CHOLECALCIFEROL 400 UNITS 10 MCG TAB PO SCH (08:23)
[2023-08-03] MEDS ORDERED: CYANOCOBALAMIN 1000 MCG/ML VIAL IM SCH (09:00)
--- NOTE | 2023-08-03 11:11 | Cardiology Progress Note ---
Date of Service August 03, 2023 Assessment & Plan (1) Arrhythmia: Plan Patient came in with worsening easy fatigability that has been ongoing for 8 months. He was found to have severe anemia with a Hgb of 6.0 and pancytopenia. He has complaints of dizziness, lightheadedness and chronic fatigue. Denies chest pain. (+) dyspnea on exertion. (+) HARRIS. Denies palpitations. Found to have Sinus rhythm with blocked PACs on his EKG. 1. Blocked PACs -pauses are brief, approximately 2 seconds 2. Short runs of Aflutter -possible 1-2 min run of Atrial flutter on telemetry earlier in hospital stay without recurrence. -asymptomatic -continue to monitor with telemetry -he is not a candidate for anticoagulation at this time given his severe anemia. -of note, he does carry a remote history of atrial flutter and was not on a/c as an outpatient -Normal LVEF on TTE We will continue to follow Admission and Anticipated Discharge Date Admission Date: July 30, 2023 Subjective Patient without complaint. Telemetry reveals sinus bradycardia in the 50s with occasional PACs. No prolonged pauses. No recurrent atrial flutter. Physical Exam Physical Exam: GEN: AAOx3; NAD HEENT: no JVD CV: RRR; S1+S2; no M/R/G PULM: CTA b/l; no wheezes, rales, or rhonchi ABD: soft; NTND EXT: no lower extremity edema Results & Data Vital Signs (Past 12 Hours) Vital Signs Temp Pulse Pulse Resp BP Pulse Ox O2 Del Method 08/03/23 11:03 36.8 C 81 18 137/74 96 Room Air 08/03/23 08:00 50 L 08/03/23 07:05 36.8 C 48 L 18 143/82 H 95 Room Air 08/03/23 02:27 36.5 C 49 L 18 131/73 95 Room Air Laboratory Results Cardiac Enzymes 08/03/23 Range/Units 05:47 Lactate Dehydrogenase 559 H (86-244) U/L CBC 08/03/23 Range/Units 05:47 WBC 10.28 (4.8-10.8) K/ul RBC 3.13 L (4.70-6.10) M/uL Hgb 10.1 L (14.0-18.0) g/dl Hct 30.5 L (42.0-52.0) % Plt Count 134 (130-400) K/uL Comprehensive Metabolic Panel 08/03/23 Range/Units 05:47 Sodium 138 (136-145) mmol/L Potassium 4.7 (3.5-5.1) mmol/L Chloride 105 (98-107) mmol/L Carbon Dioxide 28 (21-32) mmol/L BUN 19 (6-23) mg/dl Creatinine 1.06 (0.6-1.4) mg/dl Glucose 98 (70-99(Fasting)) mg/dl Calcium 9.2 (8.6-10.3) mg/dl Intake and Output 08/02/23 08/03/23 08/03/23 22:59 06:59 14:59 Intake Total 1860 / 2510 550 / 2510 100 / 100 Output Total 1425 / 2425 650 / 2425 300 / 300 Balance 435 / 85 -100 / 85 -200 / -200 Intake: IV 100 / 300 100 / 300 100 / 100 Piperacillin/Tazobactam 4.5 gm 100 / 300 100 / 300 100 / 100 In Dextrose 5% Mini-B 100 ml @ 25 mls/hr IV Q8H [facility] Rx#: [id number] Oral 1760 / 2210 450 / 2210 Output: Urine 1425 / 2425 650 / 2425 300 / 300 Other: # Unmeasured Voids 1 3 Weight 86.5 kg Weight Measurement Method Built in [facility] (1) Arrhythmia Arrhythmia type: premature depolarization Premature depolarization type: atrial Qualified Code(s): I49.1 - Atrial premature depolarization
[2023-08-03] MEDS ORDERED: fentaNYL citrate PF 100 MCG/2 ML VIAL ONE (11:23)
[2023-08-03] MEDS ORDERED: ACETAMINOPHEN 1000 MG/100 ML IV IV ONE (11:23)
--- NOTE | 2023-08-03 14:53 | CT Scan Report ---
CT guided bone marrow biopsy INDICATION: Pancytopenia PROCEDURE: Procedure and risks were explained. Informed consent was obtained. A final timeout was com pleted. Patient was placed prone on the CT scan table. The left gluteal region was prepped and draped in sterile fashion. 1% buffered lidocaine was utilized for skin anesthesia. The patient received 1 g of Tylenol and 50 mcg fentanyl IV. Utilizing CT guidance, an 11-gauge bone biopsy needle was advanced into the left iliac bone. Multiple aspirates and one core was obtained and given to the lab. The needle was removed and Band-Aid applmarilu d. The patient tolerated the procedure well. Vital signs will be monitored postprocedure. IMPRESSION: Bone marrow biopsy as above. Performed, dictated, and signed by Vidal Salgado PA-C; to be co-signed by Dr. Ben Foreman. Electronically signed by: Ben Foreman M.D. 08/03/2023 3:15 PM
--- NOTE | 2023-08-03 15:52 | Hospitalist Progress Note ---
Date of Service August 03, 2023 Assessment & Plan (1) Anemia: Plan Easy fatigability Anemia Pancytopenia Patient came in with worsening easy fatigability that has been ongoing for 8 months per patient. Patient reports he has been bone marrow tested and was told he was not making enough red cells. Patient also reports history of reflux disease and blood in his wipe but no black stool. Iron panel - higher iron, nl b12 and folate levels. LDH minimally elevated, bilirubin normal. Haptoglobin pending. FOBT neg. c/w home dose of PPI. Admitting hemoglobin of 6.0, s/p 4 units prbc so far, HnH in am 10.1; pt feels improving fatigability and tiredness Irradiated blood transfusion as needed. 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 spoke w/ [facility] for transfer, accepted for transfer, paper work completed, awaiting bed, accepting physician is Dr. Worthy. Transfuse blood for symptomatic anemia or hemoglobin less than 7. OP BM biopsy from 06/09/2023: Hypercellular marrow with atypical maturing trilineage hematopoiesis, no increase in blasts, myelofibrosis, decreased storage iron. Mantoux test done on 02/17/23 negative. HIV test - non reactive. Hemoglobin is stable, patient reports feeling better. DC atb as no growth 48 hours in blood culture. Arrythmia/Blocked PACs/Short runs of SVT vs Atach Vs Aflutter: Cardio on board, c/w telemetry. reviewed TTE. Other chronic medical conditions: PTSD/depression/reflux disease --continue with/resume home meds as and when able. DVT prophylaxis: SCDs, ambulation in the room. Full code Admission and Anticipated Discharge Date Admission Date: July 30, 2023 Subjective Patient was seen and examined at bedside. Patient was lying in bed, on room air, resting comfortably, not in any acute distress. Patient denies palpitation, reports improving fatiguability No issues overnight per pt. Hb stable. Physical Exam Physical Exam: GENERAL: Alert and oriented x3. NAD, on RA. HEENT: No pallor, no icterus. Pupils equal, round and reactive to light. Oral mucosa moist. NECK: No JVD, no neck masses. HEART: S1 and S2 heard. Regular rate and rhythm. No murmur, no gallop. RESPIRATORY SYSTEM: Normal AP diameter. No accessory muscle use. No wheezing, no crackles. ABDOMEN: Soft, bowel sounds present, nontender, no distention. CENTRAL NERVOUS SYSTEM: No facial droop. Speech is clear. Obeys simple commands. Moves extremities. EXTREMITIES: No edema, no erythema seen. Results & Data Results & Data Vital Signs (Past 12 Hours) Vital Signs Temp Pulse Pulse Resp BP Pulse Ox O2 Del Method 08/03/23 15:10 36.8 C 49 L 19 134/75 Room Air 08/03/23 11:03 36.8 C 81 18 137/74 96 Room Air 08/03/23 08:00 50 L 08/03/23 07:05 36.8 C 48 L 18 143/82 H 95 Room Air
--- NOTE | 2023-08-03 18:45 | Discharge Summary ---
Date of Service August 03, 2023 Admission HPI Per Admitting Provider 53-year-old male with PMH of PTSD, depression, reflux disease, and anemia [and no history of blood clot or cancer or stroke or HI per patient] presented to the ED with complaint of lightheadedness/dizziness with activity, lack of energy, sleepiness, shortness of breath with activity, easy fatigability ongoing for 8 months which has been worsening lately. He was tested for blood level, hemoglobin returned low at 6.1 as an outpatient. Patient denies any flulike illness or sore throat or cough or chest pain or palpitation. Patient reports overall decrease in his activity level. Reports eating okay, has not noticed black stool but has sometimes noticed blood in the wipe. Patient denies use of blood thinner or NSAIDs. Patient does have history of reflux disease. He takes Prilosec as an outpatient. Medications discussed with the patient at bedside. Plan of care discussed with the patient at bedside, he voiced understanding. Full code Admission Exam Per Admitting Provider GENERAL: Alert and oriented x3. NAD, on 2L O2 via NC. HEENT: No pallor, no icterus. Pupils equal, round and reactive to light. Oral mucosa moist. NECK: No JVD, no neck masses. HEART: S1 and S2 heard. Regular rate and rhythm. No murmur, no gallop. RESPIRATORY SYSTEM: Normal AP diameter. No accessory muscle use. No wheezing, no crackles. ABDOMEN: Soft, bowel sounds present, nontender, no distention. CENTRAL NERVOUS SYSTEM: No facial droop. Speech is clear. Obeys simple commands. Moves extremities. EXTREMITIES: No edema, no erythema seen. 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 NAD, on RA. HEENT: No pallor, no icterus. Pupils equal, round and reactive to light. Oral mucosa moist. NECK: No JVD, no neck masses. HEART: S1 and S2 heard. Regular rate and rhythm. No murmur, no gallop. RESPIRATORY SYSTEM: Normal AP diameter. No accessory muscle use. No wheezing, no crackles. ABDOMEN: Soft, bowel sounds present, nontender, no distention. CENTRAL NERVOUS SYSTEM: No facial droop. Speech is clear. Obeys simple commands. Moves extremities. EXTREMITIES: No edema, no erythema seen. Discharge Data Allergies Allergy/AdvReac Type Severity Reaction Status Date / Time No Known Allergies Allergy Unverified 07/30/23 15:40 Consultations 07/30/23 17:33 ED Decision to Admit Stat 07/30/23 17:52 Consult Hematology Routine 07/30/23 18:08 HIM [Consult Health Information Management] Routine 07/31/23 00:43 Consult Cardiology Routine 08/03/23 14:24 Burn CD for patient Stat Ordered Studies 08/01/23 00:55 CT abd pelvis wo con Urgent 08/03/23 08:43 IR bone marrow bx & asp Routine Hospital Course (1) Anemia: Plan Easy fatigability Anemia Pancytopenia Patient came in with worsening easy fatigability that has been ongoing for 8 months per patient. Patient reports he has been bone marrow tested and was told he was not making enough red cells. Patient also reports history of reflux disease and blood in his wipe but no black stool. Iron panel - higher iron, nl b12 and folate levels. LDH minimally elevated, bilirubin normal. Haptoglobin pending. FOBT neg. c/w home dose of PPI. Admitting hemoglobin of 6.0, s/p 4 units prbc so far, HnH in am 10.1; pt feels improving fatigability and tiredness Irradiated blood transfusion as needed. 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 spoke w/ [facility] for transfer, accepted for transfer, paper work completed, awaiting bed, accepting physician is Dr. Worthy. Transfuse blood for symptomatic anemia or hemoglobin less than 7. OP BM biopsy from 06/09/2023: Hypercellular marrow with atypical maturing trilineage hematopoiesis, no increase in blasts, myelofibrosis, decreased storage iron. Mantoux test done on 02/17/23 negative. HIV test - non reactive. Hemoglobin is stable, patient reports feeling better. DC atb as no growth 48 hours in blood culture. continue to monitor clinically. Arrythmia/Blocked PACs/Short runs of SVT vs Atach Vs Aflutter: Cardio on board, c/w telemetry. reviewed TTE. Other chronic medical conditions: PTSD/depression/reflux disease --continue with/resume home meds as and when able. DVT prophylaxis: SCDs, ambulation in the room. Full code pt being transferred to [facility]. Home Health Attestation I certify that this patient is under my care and that I, or a physicians executive marketing assistant working with me, had a face to-face encounter that meets the home health [id number] encounter requirements with this patient. The encounter with the patient was in whole, or in part, for the following medical condition, which is the primary reason for home health care (list medical condition): I certify that, based on my findings, the following services are medically necessary home health services: My clinical findings support the need for the above services because: Further, I certify that my clinical findings support that this patient is homebound (i.e. absences from home require considerable and taxing effort and are for medical reasons or uatsdin services or infrequently or of short duration when for other reasons) because: Certification for Home Health Services: Based on the above findings, I certify that this patient is confined to the home and needs intermittent fpc care, physical therapy and/or speech therapy or continues to need occupational therapy. The patient is under my care, and I have initiated the establishment of the plan of care. This patient will be followed by a physician who will periodically review the plan of care. 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 Non-emergency contact: Primary Care Provider Call non-emergency contact if: you have any medication questions Follow-up/Referrals: Jacqui HDZ [Primary Care Provider] - Diet: Regular Addtl Attending Provider Instructions: Your prior to arrival Home medications are resumed as it is in the medication reconciliation. Your current inpatient medications are copied and pasted here for the sake of comparison. Current Inpatient Medications Acetaminophen (Acetaminophen 325 Mg Tab) 650 mg PO Q4H PRN PRN Reason: Pain or Fever Stop: 08/29/23 17:54 Last Admin: 08/02/23 20:12 Dose: 650 mg Al Hydrox/Mg Hydrox/Simethicone (Aluminum/Magnesium Susp 30 Ml Udc) 15 ml PO Q4H PRN PRN Reason: Dyspepsia Stop: 08/29/23 17:54 Atropine Sulfate (Atropine Sulfate 0.1 Mg/Ml 10ml Syr) 1 mg IV Q3M PRN PRN Reason: symptomatic bradycardia Stop: 08/29/23 22:21 Cyanocobalamin (Cyanocobalamin 1000 Mcg/Ml Vial) 1,000 mcg IM Q14D@0900 [facility] Stop: 09/02/23 08:59 Last Admin: 08/03/23 08:23 Dose: 1,000 mcg Folic Acid (Folic Acid 1 Mg Tab) 1 mg PO DAILY [facility] Stop: 08/30/23 08:59 Last Admin: 08/03/23 08:22 Dose: 1 mg Magnesium Hydroxide (Magnesium Hydroxide Susp 30 Ml Udc) 30 ml PO Q12H PRN PRN Reason: Constipation Stop: 08/29/23 17:54 Melatonin (Melatonin 3 Mg Tab) 3 mg PO HS PRN PRN Reason: Sleep Stop: 08/30/23 23:26 Last Admin: 08/01/23 00:06 Dose: 3 mg Mirtazapine (Mirtazapine Soltab 15 Mg) 45 mg PO HS [facility] Stop: 08/29/23 20:59 Last Admin: 08/02/23 22:00 Dose: 45 mg Ondansetron HCl (Ondansetron Inj 2 Mg/Ml 2 Ml Vial) 4 mg IV Q6H PRN PRN Reason: Nausea Stop: 08/29/23 17:54 Last Admin: 07/31/23 06:52 Dose: 4 mg Oxycodone HCl (Oxycodone Hcl Ir 5 Mg Tab (Immediate Release)) 5 mg PO Q8H PRN PRN Reason: Severe Pain (Scale 7, 8, 9,10) Stop: 08/14/23 17:13 Last Admin: 08/02/23 13:51 Dose: 5 mg Pantoprazole Sodium (Pantoprazole 40 Mg Tab) 40 mg PO DAILY [facility] Stop: 08/31/23 08:59 Last Admin: 08/03/23 08:21 Dose: 40 mg Prazosin HCl (Prazosin Hcl 1 Mg Cap) 3 mg PO HS [facility] Stop: 08/29/23 20:59 Last Admin: 07/30/23 22:07 Dose: 3 mg Pyridoxine HCl (Pyridoxine Hcl 50 Mg Tab) 100 mg PO BID [facility] Stop: 08/29/23 20:59 Last Admin: 08/03/23 08:22 Dose: 100 mg Sertraline HCl (Sertraline Hcl 100 Mg Tablet) 100 mg PO DAILY [facility] Stop: 08/30/23 08:59 Last Admin: 08/03/23 08:21 Dose: 100 mg Sertraline HCl (Sertraline Hcl 50 Mg Tablet) 50 mg PO DAILY [facility] Stop: 08/30/23 08:59 Last Admin: 08/03/23 08:22 Dose: 50 mg Vitamin D (Cholecalciferol 400 Units 10 Mcg Tab) 400 units PO DAILY [facility] Stop: 08/30/23 08:59 Last Admin: 08/03/23 08:23 Dose: 400 units Pending Studies at Discharge: Yes Stand-Alone Forms: My [facility] Skilled Items Patient informed of condition?: Yes DNR: No Discharge Level of Care: Other Communicable Disease: No Discharge Prognosis: Other Lines: Peripheral IV Urinary Catheter: No Medications and DC Order Prescriptions: Continued sertraline 100 mg Tablet 100 mg PO DAILY cholecalciferol (vitamin D3) [Vitamin D3] 10 mcg (400 unit) Tablet 10 mcg PO DAILY omeprazole 20 mg Capsule,Delayed Release(Dr/Ec) 20 mg PO DAILY folic acid 1 mg Tablet 1 mg PO DAILY sertraline 50 mg Tablet 50 mg PO DAILY prazosin 1 mg Capsule 3 mg PO HS mirtazapine 45 mg Tablet 45 mg PO HS acetaminophen 500 mg Tablet 1,000 mg PO TID PRN (Reason: Pain) cyanocobalamin (vitamin B-12) [Vitamin B-12] 1,000 mcg/mL Solution 1,000 mcg IM .Q 2 WKS ON WEDNESDAY pyridoxine (vitamin B6) [Vitamin B-6] 100 mg Tablet 100 mg PO BID Epogen 10,000 unit/mL Solution 10,000 unit subcut WK Discharge Orders: Discharge Order (Routine); Ordered 08/03/23 Ordered By: Aida Allen Admission Data Admit Date/Time: 07/30/23 17:56 Attending Provider: Aida Allen Admit Provider: Aida Allen Primary Care Provider: Jacqui HDZ Other Providers: Aida Allen; Darren Ortega; Ijeoma Alcala; Tiffanie Sullivan; Raymond García; Iris Hewitt; Kaden Capellan; Riddhi Smith; Lainey Guerra.; Quentin Matthew; Harshil Small; Nilda Dudley; [facility] Attending; Cherelle Forde; Shai Bell; Darell Ruiz; Edmund Carson; Cabrera Crawford; Gabe Alba; Ramlia Mcgee; Bailey Curry; Cherelle Garcia; Reagan Taylor; Elias Cantu; Ilsa Peng; Tavia Stone; Walker Frost; Pee Holliday
--- NOTE | 2023-08-03 20:54 | Hospitalist Progress Note ---
Date of Service August 03, 2023 Assessment & Plan (1) AML (acute myelogenous leukemia): Plan: I personally reviewed the initial aspirate slides from the bone marrow done earlier today with our pathology department. We note that the peripheral smear review does show 23% blasts today. The bone marrow shows increased cellularity and a significant proportion of blasts. These do not look at all like lymphoblasts and this is almost certainly an AML. There is does not seem to be any particular indications of an acute promyelocytic leukemia. Megakaryocytes are significantly reduced as are Red cell precursors. There are some intermediately differentiated myeloid forms though there is reduced full maturation to the granulocyte stage I spoke with the patient informing him of the diagnosis, that there would be treatment options available and that we expect that there is at least a moderate cure rate though the specifics of the prognosis and treatment plan will await more specific characterization of the AML particularly with regards to rodriguez chromosomal changes and mutations. We discussed that these assessments will be better coordinated through a quaternary center with a dedicated acute leukemia team and that the treatments may require intensive chemotherapy as well as stem cell transplantation to achieve optimal outcomes. We discussed that there is unfortunately not a cure achievable in all patients treated and that there can be life ending complications of the treatment itself. The patient seemed to well understand this and does seem committed to going forward with whatever treatment can be offered. Hospitalist team has been in contact with the team at [facility] who have provisionally accepted the patient for transfer. I have spoken with pathology and asked them to coordinate transfer of appropriate materials for review by their counterparts at [facility]. Plan Patient has been informed of his diagnosis of AML and given a broad outline of potential treatment options subject to more specific discussion once additional molecular characterization is available Plan would be to transfer his care to [facility] with a dedicated leukemia team there Transfusion support as per the original consultation while we await transfer Admission and Anticipated Discharge Date Admission Date: July 30, 2023 Subjective Patient has no active complaints at this time Physical Exam Physical Exam: Vital signs are stable except noted mild bradycardia. He seems in no acute distress. Lung cardiac and abdominal exam seems stable and there is no marked petechiae or bruising Results & Data Results & Data Vital Signs (Past 12 Hours) Vital Signs Temp Pulse Pulse Resp BP Pulse Ox O2 Del Method 08/03/23 19:50 36.8 C 49 L 19 134/75 96 08/03/23 16:30 Room Air 08/03/23 15:10 36.8 C 49 L 19 134/75 Room Air 08/03/23 14:01 49 L 08/03/23 11:03 36.8 C 81 18 137/74 96 Room Air PG Care Time/CCT Total # of Minutes Spent Total Time Spent with Patient: Total time spent is greater than 50% in coordination of care (as documented) at patient's floor/unit and/or counseling patient: Coding Level of Care Code 30650 SUB INP/OBS CARE 09/09MIN Diagnoses AML (acute myelogenous leukemia) C92.00
== END 2023-08-03 19:50 | disposition short-term general hospital (02) | DRG 824 ==
LOC: ED 14:45 → 4W 17:56